=== PATIENT | female | born 1945 | race Caucasian/White ===

== ENCOUNTER → 2016-07-11 | Outpatient (CLI) | payer OTHER, MEDICARE ==
[2016-06-04 16:23] VITALS: BP 192/70
[2016-07-11 13:01] LABS: ALBUMIN 3.8 g/dL (3.4-5.0); BLOOD UREA NITROGEN 56 mg/dL (7-18); CALCIUM 8.7 mg/dL (8.5-10.1); CARBON DIOXIDE 29.3 mmol/L (21-32); CHLORIDE 104 mmol/L (98-107); CHOL/HDL RATIO 3.7 (0.0-5.0); CHOLESTEROL 186 mg/dL (0-200); CREATININE 2.21 mg/dL (0.55-1.02); GLUCOSE 88 mg/dL (65-99); HDL CHOLESTEROL 50 mg/dL (40-60); PHOSPHORUS 5.1 mg/dL (2.6-4.7); SODIUM 144 mmol/L (136-145); TRIGLYCERIDES 89 mg/dL (0-150); URIC ACID 10.4 mg/dL (2.6-6.0); eGFR BLACK RACES 28 (>60); eGFR NON BLACK RACES 23 (>60)
[2016-07-11 13:06] LABS: BASOPHILS # (AUTO) 0.1 X10^3/uL (0.0-0.1); BASOPHILS % (AUTO) 0.9 % (0.2-1.0); EOSINOPHILS # (AUTO) 0.4 x10^3/uL (0.0-0.2); EOSINOPHILS % (AUTO) 3.6 % (0.9-2.9); HEMATOCRIT 27.6 % (36.0-47.0); HEMOGLOBIN 9.4 g/dL (12.0-16.0); LYMPHOCYTES # (AUTO) 2.1 X10^3/uL (1.3-2.9); LYMPHOCYTES % (AUTO) 20.5 % (21.0-51.0); MEAN CORPUSCULAR HEMOGLOBIN 29.3 pg (27.0-34.0); MEAN CORPUSCULAR HGB CONC 33.9 g/dL (33.0-35.0); MEAN CORPUSCULAR VOLUME 86.3 fL (80.0-100.0); MEAN PLATELET VOLUME 7.4 fL (7.4-11.0); MONOCYTES % (AUTO) 9.4 % (0.0-13.0); NEUTROPHILS # (AUTO) 6.7 x10^3/uL (2.2-4.8); NEUTROPHILS % (AUTO) 65.6 % (42.0-75.0); PLATELET COUNT 222 X10^3/uL (150.0-450.0); RED CELL DISTRIBUTION WIDTH 14.9 % (11.6-16.5)
[2016-07-11 13:08] LABS: HEMOGLOBIN A1C 6.9 % (4.5-6.2)
[2016-07-11 13:12] LABS: WHITE BLOOD COUNT 10.2 X10^3/uL (3.6-10.0)
[2016-07-11 13:13] LABS: PLATELET MORPHOLOGY COMMENT NORMAL (NORMAL)
== END ==
LOC: LAB 12:23
PROVIDERS: ATTEND Internal Medicine
DX: I12.9 Hypertensive chronic kidney disease with stage 1 through stage 4 chronic kidney disease, or unspecified chronic kidney disease (principal); N18.3 Chronic kidney disease, stage 3 (moderate); E11.9 Type 2 diabetes mellitus without complications
CPT/HCPCS: 36415; 80061; 80069; 83036; 84550; 85025

== ENCOUNTER → 2016-09-25 | Outpatient (CLI) | payer OTHER, MEDICARE ==
[2016-06-04 16:23] VITALS: BP 192/70
[2016-09-25 11:43] LABS: BASOPHILS % (AUTO) 0.7 % (0.2-1.0); EOSINOPHILS # (AUTO) 0.2 x10^3/uL (0.0-0.2); EOSINOPHILS % (AUTO) 2.7 % (0.9-2.9); HEMOGLOBIN 9.2 g/dL (12.0-16.0); LYMPHOCYTES # (AUTO) 0.9 X10^3/uL (1.3-2.9); LYMPHOCYTES % (AUTO) 15.9 % (21.0-51.0); MEAN CORPUSCULAR HEMOGLOBIN 29.4 pg (27.0-34.0); MEAN CORPUSCULAR HGB CONC 35.4 g/dL (33.0-35.0); MEAN CORPUSCULAR VOLUME 82.9 fL (80.0-100.0); MEAN PLATELET VOLUME 7.3 fL (7.4-11.0); MONOCYTES # (AUTO) 0.5 x10^3/uL (0.3-0.8); MONOCYTES % (AUTO) 9.4 % (0.0-13.0); NEUTROPHILS % (AUTO) 71.3 % (42.0-75.0); PLATELET COUNT 209 X10^3/uL (150.0-450.0); RED BLOOD COUNT 3.13 X10^6/uL (3.5-5.4); RED CELL DISTRIBUTION WIDTH 13.8 % (11.6-16.5); WHITE BLOOD COUNT 5.7 X10^3/uL (3.6-10.0)
[2016-09-25 11:54] LABS: HEMOGLOBIN A1C 6.8 % (4.5-6.2)
[2016-09-25 11:58] LABS: ALBUMIN 3.1 g/dL (3.4-5.0); CALCIUM 8.8 mg/dL (8.5-10.1); CARBON DIOXIDE 29.9 mmol/L (21-32); CHOL/HDL RATIO 5.1 (0.0-5.0); COR CA(FOR HYPOALB) 9.5 mg/dL (8.5-10.1); CREATININE 2.42 mg/dL (0.55-1.02); PHOSPHORUS 4.1 mg/dL (2.6-4.7); URIC ACID 8.3 mg/dL (2.6-6.0)
== END ==
LOC: LAB 11:18
PROVIDERS: ATTEND Internal Medicine
DX: I12.9 Hypertensive chronic kidney disease with stage 1 through stage 4 chronic kidney disease, or unspecified chronic kidney disease (principal); N18.3 Chronic kidney disease, stage 3 (moderate); E11.9 Type 2 diabetes mellitus without complications
CPT/HCPCS: 36415; 80061; 80069; 83036; 84550; 85025

== ENCOUNTER → 2016-11-26 | Outpatient (CLI) | payer OTHER, MEDICARE ==
[2016-06-04 16:23] VITALS: BP 192/70
[2016-11-26 14:01] LABS: CALCIUM 8.3 mg/dL (8.5-10.1); CARBON DIOXIDE 31.3 mmol/L (21-32); COR CA(FOR HYPOALB) 9.1 mg/dL (8.5-10.1); CREATININE 2.57 mg/dL (0.55-1.02); PHOSPHORUS 4.1 mg/dL (2.6-4.7)
[2016-11-26 14:03] LABS: BASOPHILS % (AUTO) 0.7 % (0.2-1.0); EOSINOPHILS # (AUTO) 0.2 x10^3/uL (0.0-0.2); EOSINOPHILS % (AUTO) 4.2 % (0.9-2.9); HEMATOCRIT 24.7 % (36.0-47.0); HEMOGLOBIN 8.6 g/dL (12.0-16.0); LYMPHOCYTES # (AUTO) 0.9 X10^3/uL (1.3-2.9); LYMPHOCYTES % (AUTO) 14.7 % (21.0-51.0); MEAN CORPUSCULAR HEMOGLOBIN 29.3 pg (27.0-34.0); MEAN CORPUSCULAR HGB CONC 34.7 g/dL (33.0-35.0); MEAN CORPUSCULAR VOLUME 84.6 fL (80.0-100.0); MONOCYTES # (AUTO) 0.5 x10^3/uL (0.3-0.8); MONOCYTES % (AUTO) 7.7 % (0.0-13.0); NEUTROPHILS # (AUTO) 4.4 x10^3/uL (2.2-4.8); NEUTROPHILS % (AUTO) 72.7 % (42.0-75.0); PLATELET COUNT 233 X10^3/uL (150.0-450.0); RED BLOOD COUNT 2.92 X10^6/uL (3.5-5.4); RED CELL DISTRIBUTION WIDTH 13.8 % (11.6-16.5)
== END ==
LOC: LAB 13:32
PROVIDERS: ATTEND Internal Medicine
DX: I12.9 Hypertensive chronic kidney disease with stage 1 through stage 4 chronic kidney disease, or unspecified chronic kidney disease (principal); N18.3 Chronic kidney disease, stage 3 (moderate); E11.9 Type 2 diabetes mellitus without complications
CPT/HCPCS: 36415; 80069; 84550; 85025

== ENCOUNTER → 2017-01-14 | Outpatient (CLI) | payer OTHER, MEDICARE ==
[2016-06-04 16:23] VITALS: BP 192/70
[2017-01-14 15:56] LABS: BASOPHILS % (AUTO) 0.6 % (0.2-1.0); EOSINOPHILS # (AUTO) 0.1 x10^3/uL (0.0-0.2); EOSINOPHILS % (AUTO) 2.9 % (0.9-2.9); HEMATOCRIT 24.3 % (36.0-47.0); HEMOGLOBIN 8.3 g/dL (12.0-16.0); LYMPHOCYTES # (AUTO) 0.7 X10^3/uL (1.3-2.9); LYMPHOCYTES % (AUTO) 19.4 % (21.0-51.0); MEAN CORPUSCULAR HGB CONC 34.3 g/dL (33.0-35.0); MEAN CORPUSCULAR VOLUME 87.3 fL (80.0-100.0); MEAN PLATELET VOLUME 6.7 fL (7.4-11.0); MONOCYTES # (AUTO) 0.4 x10^3/uL (0.3-0.8); MONOCYTES % (AUTO) 9.5 % (0.0-13.0); NEUTROPHILS # (AUTO) 2.6 x10^3/uL (2.2-4.8); NEUTROPHILS % (AUTO) 67.6 % (42.0-75.0); PLATELET COUNT 187 X10^3/uL (150.0-450.0); RED BLOOD COUNT 2.78 X10^6/uL (3.5-5.4); WHITE BLOOD COUNT 3.8 X10^3/uL (3.6-10.0)
[2017-01-14 16:07] LABS: HEMOGLOBIN A1C 5.7 % (4.5-6.2)
[2017-01-14 16:10] LABS: ALBUMIN 3.1 g/dL (3.4-5.0); BLOOD UREA NITROGEN 47 mg/dL (7-18); CALCIUM 8.7 mg/dL (8.5-10.1); CARBON DIOXIDE 28.1 mmol/L (21-32); CHLORIDE 105 mmol/L (98-107); COR CA(FOR HYPOALB) 9.4 mg/dL (8.5-10.1); COR NA(FOR HYPERGLY) 142 mmol/L (136-145); PHOSPHORUS 4.4 mg/dL (2.6-4.7); SODIUM 138 mmol/L (136-145); URIC ACID 9.6 mg/dL (2.6-6.0); eGFR BLACK RACES 21 (>60); eGFR NON BLACK RACES 17 (>60)
[2017-01-14 16:36] LABS: IRON 31 ug/dL (50-175); TOTAL IRON BINDING CAPACITY 176 ug/dL (250-450)
== END | disposition home or self-care (01) | DRG 683 ==
LOC: LAB 15:10
PROVIDERS: ATTEND Internal Medicine
DX: I12.9 Hypertensive chronic kidney disease with stage 1 through stage 4 chronic kidney disease, or unspecified chronic kidney disease (principal); N18.4 Chronic kidney disease, stage 4 (severe); D63.1 Anemia in chronic kidney disease; E11.9 Type 2 diabetes mellitus without complications
CPT/HCPCS: 36415; 80069; 82728; 82746; 83036; 83540; 83550; 84550; 85025

== ENCOUNTER → 2017-01-21 | Outpatient (CLI) | payer OTHER, MEDICARE ==
[2016-06-04 16:23] VITALS: BP 192/70
[2017-01-21 14:58] LABS: BASOPHILS % (AUTO) 0.7 % (0.2-1.0); EOSINOPHILS # (AUTO) 0.2 x10^3/uL (0.0-0.2); EOSINOPHILS % (AUTO) 3.3 % (0.9-2.9); HEMATOCRIT 26.2 % (36.0-47.0); HEMOGLOBIN 9.1 g/dL (12.0-16.0); LYMPHOCYTES % (AUTO) 20.9 % (21.0-51.0); MEAN CORPUSCULAR HEMOGLOBIN 30.2 pg (27.0-34.0); MEAN CORPUSCULAR HGB CONC 34.7 g/dL (33.0-35.0); MEAN CORPUSCULAR VOLUME 87.2 fL (80.0-100.0); MEAN PLATELET VOLUME 6.4 fL (7.4-11.0); MONOCYTES # (AUTO) 0.5 x10^3/uL (0.3-0.8); MONOCYTES % (AUTO) 11.1 % (0.0-13.0); NEUTROPHILS # (AUTO) 3.2 x10^3/uL (2.2-4.8); PLATELET COUNT 216 X10^3/uL (150.0-450.0); RED CELL DISTRIBUTION WIDTH 15.7 % (11.6-16.5); WHITE BLOOD COUNT 4.9 X10^3/uL (3.6-10.0)
[2017-01-21 15:10] LABS: ALBUMIN 3.5 g/dL (3.4-5.0); BLOOD UREA NITROGEN 40 mg/dL (7-18); CALCIUM 8.9 mg/dL (8.5-10.1); CARBON DIOXIDE 28.2 mmol/L (21-32); CHLORIDE 103 mmol/L (98-107); COR NA(FOR HYPERGLY) 145 mmol/L (136-145); CREATININE 2.81 mg/dL (0.55-1.02); PHOSPHORUS 4.4 mg/dL (2.6-4.7); SODIUM 141 mmol/L (136-145); URIC ACID 10.1 mg/dL (2.6-6.0); eGFR BLACK RACES 21 (>60); eGFR NON BLACK RACES 18 (>60)
== END ==
LOC: LAB 14:42
PROVIDERS: ATTEND Internal Medicine
DX: N17.8 Other acute kidney failure (principal); N18.3 Chronic kidney disease, stage 3 (moderate)
CPT/HCPCS: 36415; 80069; 84550; 85025

== ENCOUNTER 2017-03-13 10:58 | Observation (INO) | payer OTHER, MEDICARE ==
[2017-03-13 12:23] LABS: EOSINOPHILS # (AUTO) 0.2 x10^3/uL (0.0-0.2); MEAN CORPUSCULAR HEMOGLOBIN 30.2 pg (27.0-34.0); MONOCYTES # (AUTO) 0.7 x10^3/uL (0.3-0.8)
[2017-03-13 12:29] LABS: BASOPHILS % (AUTO) 0.5 % (0.2-1.0); EOSINOPHILS % (AUTO) 2.8 % (0.9-2.9); HEMOGLOBIN 6.6 g/dL (12.0-16.0); LYMPHOCYTES % (AUTO) 18.3 % (21.0-51.0); MEAN CORPUSCULAR HGB CONC 34.9 g/dL (33.0-35.0); MEAN CORPUSCULAR VOLUME 86.5 fL (80.0-100.0); MEAN PLATELET VOLUME 6.7 fL (7.4-11.0); MONOCYTES % (AUTO) 12.1 % (0.0-13.0); NEUTROPHILS # (AUTO) 3.8 x10^3/uL (2.2-4.8); NEUTROPHILS % (AUTO) 66.3 % (42.0-75.0); PLATELET COUNT 194 X10^3/uL (150.0-450.0); RED CELL DISTRIBUTION WIDTH 13.9 % (11.6-16.5); WHITE BLOOD COUNT 5.7 X10^3/uL (3.6-10.0)
[2017-03-13] MEDS ORDERED: NS 500 ML IV 500 ML IV ONE (13:59)
[2017-03-13] MEDS ORDERED: CATAPRES TAB 0.1 MG ONE (17:40)
[2017-03-13 18:07] VITALS: BMI 31.2
[2017-03-13] MEDS ORDERED: FLUVIRIN IM ONE (18:07)
[2017-03-13] MEDS ORDERED: PREVNAR 13 IM ONE (18:07)
[2017-03-13] MEDS ORDERED: XANAX PO PRN (18:44)
[2017-03-13] MEDS ORDERED: TYLENOL 325 MG TAB PO ONE (18:49)
[2017-03-13] MEDS ORDERED: BENADRYL INJ 50 MG VIAL IVP ONE (18:49)
[2017-03-13] MEDS ORDERED: LASIX IVP ONE (18:50)
[2017-03-13] MEDS ORDERED: HumuLIN R SUBCUT PRN (18:52)
[2017-03-13] MEDS: APRESOLINE INJ 20 MG VIAL IVP PRN (19:21)
[2017-03-13] MEDS ORDERED: HYDRALAZINE HCL 100 MG PO SCH (21:00)
[2017-03-13] MEDS ORDERED: PRAVASTATIN SODIUM 40 MG PO SCH (21:00)
[2017-03-13] MEDS ORDERED: AMARYL TAB 4 MG PO SCH (21:00)
[2017-03-13] MEDS: SNACK - Diabetic Appropriate PO SCH (21:00)
[2017-03-13] MEDS ORDERED: APRESOLINE TAB 25 MG PO SCH (21:00)
[2017-03-13] MEDS ORDERED: ELAVIL PO SCH (21:00)
[2017-03-13] MEDS: MILK OF MAGNESIA PO SCH (22:00)
[2017-03-13] MEDS: COLACE CAP 100 MG PO SCH (22:00)
[2017-03-13] MEDS: PRAVACHOL PO SCH (22:00)
[2017-03-13] MEDS: ELAVIL PO SCH (22:00)
[2017-03-13] MEDS ORDERED: CATAPRES TAB 0.1 MG PO ONE (23:44)
[2017-03-14] MEDS: COLACE CAP 100 MG PO SCH ×2 (00:52→21:51)
[2017-03-14] MEDS: PRAVACHOL PO SCH ×2 (01:00→22:35)
[2017-03-14] MEDS: MILK OF MAGNESIA PO SCH ×2 (01:03→21:53)
[2017-03-14] MEDS: ELAVIL PO SCH ×2 (01:04→21:51)
[2017-03-14] MEDS: LASIX PO SCH ×2 (01:04→09:09)
[2017-03-14] MEDS ORDERED: NORVASC TAB 5 MG PO ONE (02:16)
[2017-03-14] MEDS ORDERED: APRESOLINE INJ 20 MG VIAL ONE (02:26)
[2017-03-14] MEDS: APRESOLINE INJ 20 MG VIAL IVP PRN ×2 (02:40→16:33)
[2017-03-14] MEDS ORDERED: AMARYL TAB 4 MG PO SCH (07:00)
[2017-03-14 08:13] LABS: BASOPHILS % (AUTO) 0.6 % (0.2-1.0); EOSINOPHILS # (AUTO) 0.2 x10^3/uL (0.0-0.2); EOSINOPHILS % (AUTO) 2.1 % (0.9-2.9); LYMPHOCYTES # (AUTO) 1.2 X10^3/uL (1.3-2.9); MEAN CORPUSCULAR HEMOGLOBIN 30.1 pg (27.0-34.0); MEAN CORPUSCULAR HGB CONC 34.8 g/dL (33.0-35.0); MEAN CORPUSCULAR VOLUME 86.5 fL (80.0-100.0); MEAN PLATELET VOLUME 6.5 fL (7.4-11.0); NEUTROPHILS # (AUTO) 4.9 x10^3/uL (2.2-4.8); NEUTROPHILS % (AUTO) 67.3 % (42.0-75.0); PLATELET COUNT 192 X10^3/uL (150.0-450.0); RED BLOOD COUNT 2.12 X10^6/uL (3.5-5.4); RED CELL DISTRIBUTION WIDTH 13.8 % (11.6-16.5); WHITE BLOOD COUNT 7.3 X10^3/uL (3.6-10.0)
[2017-03-14 08:16] LABS: HEMATOCRIT 18.4 % (36.0-47.0); HEMOGLOBIN 6.4 g/dL (12.0-16.0)
[2017-03-14] MEDS ORDERED: ASPIRIN 81 MG PO SCH (09:00)
[2017-03-14] MEDS ORDERED: TORSEMIDE 10 MG PO SCH (09:00)
[2017-03-14] MEDS ORDERED: LASIX PO SCH (09:00)
[2017-03-14] MEDS ORDERED: ASPIRIN EC 81 MG PO SCH (09:00)
[2017-03-14] MEDS ORDERED: SPIRONOLACTONE 50 MG PO SCH (09:00)
[2017-03-14] MEDS ORDERED: ALDACTONE TAB 25 MG PO SCH (09:00)
[2017-03-14] MEDS: APRESOLINE TAB 25 MG PO SCH ×2 (09:07→21:52)
[2017-03-14] MEDS: ALDACTONE TAB 25 MG PO SCH (09:08)
[2017-03-14] MEDS: XANAX PO SCH (09:09)
[2017-03-14] MEDS: DEMADEX PO SCH (09:09)
[2017-03-14] MEDS: ASPIRIN 81 MG CHEWTAB PO SCH (09:09)
[2017-03-14] MEDS ORDERED: NS 500 ML IV 500 ML IV ONE (09:13)
--- NOTE | 2017-03-14 13:55 | DR.H&P ---
H&P - History & Physical for Day of: H&P Date: 03/13/17 - Chief Complaint Chief Complaint: HYPERTENSION - Allergies Allergies/Adverse Reactions: Allergies Allergy/AdvReac Type Severity Reaction Status Date / Time MS Sulfa Antibiotics Allergy Unknown Verified 03/13/17 23:43 [Sulfa Antibiotics] MS Sulfamethoxazole Allergy Unknown Verified 03/13/17 23:43 w/Trimethoprim [From Bactrim] - History of Present Illness History of Present Illness: 72 WF ADMISSION AFTER PRESENTING FOR OP LABS AND HAD HYPERTENSIVE URGENCY, PT HAS LONG HX OF UNCONTROLLED HTN. PT IS UNDER CARE OF DR SEPULVEDA FOR CHRONIC ANEMIA. PLAN TO RESUME HOME MEDS, BP CONTROL AND TRANSFUSE BLOOD PRODUCTS. - Past Medical History Past Medical History: Anemia, Diabetes, Hypertension - Past Surgical History Surgical History: CABG/Valve Surgery - Family History Family Medical History: Diabetes Mellitus, Cancer, Coronary Artery Disease, Hypertension - Social History Does patient currently use any type of tobacco product: No Have you used tobacco products in the last 12 months: No Type of Tobacco Use: None Does any household member use tobacco: No Alcohol Use: None Drug Use: None - Medications Home Medications: Alprazolam 0.25 mg PO DAILY 03/13/17 [History Confirmed 03/13/17] Amitriptyline HCl 25 mg PO HS 03/13/17 [History Confirmed 03/13/17] Aspirin 81 mg PO DAILY 03/13/17 [History Confirmed 03/13/17] Cinnamon Bark [Cinnamon] 500 mg PO DAILY 03/13/17 [History Confirmed 03/13/17] Furosemide [Lasix] 40 mg PO DAILY 03/13/17 [History Confirmed 03/13/17] Hydralazine HCl [Hydralazine HCl 50 mg] 100 mg PO BID 03/13/17 [History Confirmed 03/13/17] Spironolactone 50 mg PO DAILY 03/13/17 [History Confirmed 03/13/17] - Review of Systems Constitutional: Weakness Eyes: No Symptoms Reported ENT: No Symptoms Reported Respiratory: No Symptoms Reported Cardiovascular: No Symptoms Reported Gastrointestinal: No Symptoms Reported Genitourinary: No Symptoms Reported Musculoskeletal: No Symptoms Reported Skin: No Symptoms Reported Neurological: No Symptoms Reported - Physical Exam Vital Signs: Temperature 99.2 F Pulse Rate [Left Brachial] 74 Pulse Rate [Right Brachial] 82 Respiratory Rate 18 Blood Pressure [Left Arm] 200/79 Blood Pressure [Right Arm] 208/87 Blood Pressure 192/70 O2 Sat by Pulse Oximetry 94 Oriented: Normal Eyes: Normal Ear: Normal Nose: Normal Throat: Normal Respiratory: RLL Diminished, LLL Diminished Cardiovascular: Normal. negative: Edema : Normal Auscultation: Bowel Sounds: Normal Palpation: Normal Tenderness: Normal Skin: Normal Musculoskeletal: Normal Mood Description: Calm Speech Pattern: Clear, Appropriate - Assessment/Plan (1) Uncontrolled hypertension Status: Acute Plan: ADMIT, EKG, CXR ON ADMISSION. BP CONTROL, MONITORING, RESUME HOME MEDS. TRANFUSE BLOOD PRODUCT ORDERED PER DR SEPULVEDA (2) Anemia Status: Acute
--- NOTE | 2017-03-14 14:15 | RAD ---
Examination: Portable AP chest History: Hypertensive crisis, anemia Comparison reference: 11/05/2011. Findings: Moderately severe cardiac enlargement. Aortic arch arteriosclerosis. Sternal wires again no dinorah. Mild central vascular prominence without evidence for consolidation or pulmonary edema. The retr ocardiac left lower lung is partly obscured by the heart. Impression: Cardiac enlargement, arteriosclerosis, postsurgical findings and mild vascular congestion . Standard views suggested to exclude abnormality in the left lower lung, see above. Reported By:
[2017-03-14] MEDS: SNACK - Diabetic Appropriate PO SCH (20:30)
[2017-03-14] MEDS ORDERED: NORVASC TAB 5 MG PO SCH (21:00)
[2017-03-14] MEDS ORDERED: CATAPRES TAB 0.1 MG PO PRN (21:23)
[2017-03-14] MEDS ORDERED: CATAPRES TAB 0.2 MG PO SCH (22:00)
[2017-03-14] MEDS ORDERED: NORVASC TAB 5 MG ONE (22:06)
[2017-03-14] MEDS: NORVASC TAB 10 MG PO SCH (22:24)
[2017-03-15] MEDS ORDERED: NS 500 ML IV 500 ML IV ONE (00:42)
[2017-03-15] MEDS ORDERED: BENADRYL INJ 50 MG VIAL ONE (02:45)
[2017-03-15] MEDS ORDERED: TYLENOL 325 MG TAB PO ONE (02:45)
[2017-03-15] MEDS ORDERED: ROBITUSSIN DM PO PRN (02:53)
[2017-03-15] MEDS: APRESOLINE INJ 20 MG VIAL IVP PRN (03:24)
[2017-03-15 06:04] LABS: EOSINOPHILS # (AUTO) 0.2 x10^3/uL (0.0-0.2); LYMPHOCYTES # (AUTO) 1.1 X10^3/uL (1.3-2.9); MONOCYTES # (AUTO) 0.8 x10^3/uL (0.3-0.8)
[2017-03-15 06:08] LABS: BASOPHILS % (AUTO) 0.5 % (0.2-1.0); EOSINOPHILS % (AUTO) 3.5 % (0.9-2.9); LYMPHOCYTES % (AUTO) 15.2 % (21.0-51.0); MEAN CORPUSCULAR HEMOGLOBIN 29.9 pg (27.0-34.0); MEAN CORPUSCULAR HGB CONC 34.8 g/dL (33.0-35.0); MEAN CORPUSCULAR VOLUME 85.9 fL (80.0-100.0); MEAN PLATELET VOLUME 6.8 fL (7.4-11.0); MONOCYTES % (AUTO) 11.1 % (0.0-13.0); NEUTROPHILS % (AUTO) 69.7 % (42.0-75.0); PLATELET COUNT 225 X10^3/uL (150.0-450.0); RED BLOOD COUNT 2.24 X10^6/uL (3.5-5.4); RED CELL DISTRIBUTION WIDTH 14.1 % (11.6-16.5); WHITE BLOOD COUNT 7.2 X10^3/uL (3.6-10.0)
[2017-03-15 06:24] LABS: HEMATOCRIT 19.3 % (36.0-47.0); HEMOGLOBIN 6.7 g/dL (12.0-16.0)
[2017-03-15 06:26] LABS: ALBUMIN 2.1 g/dL (3.4-5.0); CALCIUM 7.5 mg/dL (8.5-10.1); CARBON DIOXIDE 27.3 mmol/L (21-32); CREATININE 3.62 mg/dL (0.55-1.02); TOTAL PROTEIN 4.9 g/dL (6.4-8.2)
[2017-03-15] MEDS ORDERED: AMARYL TAB 4 MG PO SCH (07:00)
[2017-03-15] MEDS ORDERED: MINOXIDIL PO ONE ×2 (07:09→07:18)
[2017-03-15] MEDS: LASIX PO SCH (08:07)
[2017-03-15] MEDS: CATAPRES TAB 0.3 MG PO SCH ×3 (08:07→16:44)
[2017-03-15] MEDS: XANAX PO SCH (08:07)
[2017-03-15] MEDS: ALDACTONE TAB 25 MG PO SCH (08:08)
[2017-03-15] MEDS: ASPIRIN 81 MG CHEWTAB PO SCH (08:08)
[2017-03-15] MEDS: APRESOLINE TAB 25 MG PO SCH (08:08)
[2017-03-15] MEDS: DEMADEX PO SCH (08:08)
[2017-03-15] MEDS ORDERED: LASIX ONE (12:43)
[2017-03-15] MEDS: NORCO 5/325 MG TAB PO PRN ×2 (12:46→17:00)
[2017-03-15 16:32] VITALS: BP 183/75
[2017-03-15] MEDS: NORVASC TAB 10 MG PO SCH (16:44)
[2017-03-15 18:00] LABS: HEMATOCRIT 28.9 % (36.0-47.0); HEMOGLOBIN 10.2 g/dL (12.0-16.0)
== END 2017-03-15 18:11 | disposition home or self-care (01) ==
LOC: OUTPT REF 10:58 → OBS 17:39
PROVIDERS: ADMIT Internal Medicine; ATTEND Internal Medicine
PROC: 30233N1 Transfusion of Nonautologous Red Blood Cells into Peripheral Vein, Percutaneous Approach (ICD-10-PCS; principal; 2017-03-15)
PROC: 30233N1 Transfusion of Nonautologous Red Blood Cells into Peripheral Vein, Percutaneous Approach (ICD-10-PCS; 2017-03-15)
DX: I16.0 Hypertensive urgency (principal); D64.89 Other specified anemias; E11.65 Type 2 diabetes mellitus with hyperglycemia; I25.10 Atherosclerotic heart disease of native coronary artery without angina pectoris
CPT/HCPCS: 36415; 36430; 71010; 80053; 85014; 85018; 85025; 86850; 86900; 86901; 86922; 90686; 93005; 93010; A4222; P9016; 90670; G0378; J0360; J1200; J1940

== ENCOUNTER → 2017-04-02 | Outpatient (CLI) | payer OTHER, MEDICARE ==
[2017-03-15 16:32] VITALS: BP 183/75
[2017-04-02 16:35] LABS: BASOPHILS % (AUTO) 0.5 % (0.2-1.0); EOSINOPHILS # (AUTO) 0.3 x10^3/uL (0.0-0.2); EOSINOPHILS % (AUTO) 3.8 % (0.9-2.9); HEMATOCRIT 30.1 % (36.0-47.0); HEMOGLOBIN 10.2 g/dL (12.0-16.0); LYMPHOCYTES # (AUTO) 0.8 X10^3/uL (1.3-2.9); LYMPHOCYTES % (AUTO) 10.9 % (21.0-51.0); MEAN CORPUSCULAR HEMOGLOBIN 29.6 pg (27.0-34.0); MEAN CORPUSCULAR VOLUME 87.2 fL (80.0-100.0); MEAN PLATELET VOLUME 6.8 fL (7.4-11.0); MONOCYTES # (AUTO) 0.7 x10^3/uL (0.3-0.8); MONOCYTES % (AUTO) 8.7 % (0.0-13.0); NEUTROPHILS # (AUTO) 5.7 x10^3/uL (2.2-4.8); NEUTROPHILS % (AUTO) 76.1 % (42.0-75.0); PLATELET COUNT 244 X10^3/uL (150.0-450.0); RED BLOOD COUNT 3.46 X10^6/uL (3.5-5.4); WHITE BLOOD COUNT 7.6 X10^3/uL (3.6-10.0)
[2017-04-02 16:51] LABS: ALBUMIN 2.6 g/dL (3.4-5.0); CARBON DIOXIDE 24.8 mmol/L (21-32); COR CA(FOR HYPOALB) 9.1 mg/dL (8.5-10.1); CREATININE 4.12 mg/dL (0.55-1.02); PHOSPHORUS 5.3 mg/dL (2.6-4.7); URIC ACID 9.4 mg/dL (2.6-6.0)
== END ==
LOC: LAB 16:09
PROVIDERS: ATTEND Internal Medicine
DX: I12.9 Hypertensive chronic kidney disease with stage 1 through stage 4 chronic kidney disease, or unspecified chronic kidney disease (principal); N18.3 Chronic kidney disease, stage 3 (moderate)
CPT/HCPCS: 36415; 80069; 84550; 85025

== ENCOUNTER → 2017-04-07 | Outpatient (CLI) | payer OTHER, MEDICARE ==
[2017-03-15 16:32] VITALS: BP 183/75
[2017-04-07 12:54] LABS: BASOPHILS % (AUTO) 0.8 % (0.2-1.0); EOSINOPHILS # (AUTO) 0.2 x10^3/uL (0.0-0.2); EOSINOPHILS % (AUTO) 3.9 % (0.9-2.9); HEMATOCRIT 28.6 % (36.0-47.0); HEMOGLOBIN 9.8 g/dL (12.0-16.0); LYMPHOCYTES # (AUTO) 0.8 X10^3/uL (1.3-2.9); LYMPHOCYTES % (AUTO) 16.2 % (21.0-51.0); MEAN CORPUSCULAR HEMOGLOBIN 29.8 pg (27.0-34.0); MEAN CORPUSCULAR HGB CONC 34.4 g/dL (33.0-35.0); MEAN CORPUSCULAR VOLUME 86.9 fL (80.0-100.0); MEAN PLATELET VOLUME 7.3 fL (7.4-11.0); MONOCYTES # (AUTO) 0.4 x10^3/uL (0.3-0.8); MONOCYTES % (AUTO) 7.9 % (0.0-13.0); NEUTROPHILS # (AUTO) 3.6 x10^3/uL (2.2-4.8); NEUTROPHILS % (AUTO) 71.2 % (42.0-75.0); PLATELET COUNT 225 X10^3/uL (150.0-450.0); RED CELL DISTRIBUTION WIDTH 13.9 % (11.6-16.5); WHITE BLOOD COUNT 5.1 X10^3/uL (3.6-10.0)
[2017-04-07 13:06] LABS: ALBUMIN 2.5 g/dL (3.4-5.0); CALCIUM 8.1 mg/dL (8.5-10.1); CARBON DIOXIDE 28.9 mmol/L (21-32); COR CA(FOR HYPOALB) 9.3 mg/dL (8.5-10.1); CREATININE 5.64 mg/dL (0.55-1.02); PHOSPHORUS 5.5 mg/dL (2.6-4.7)
== END ==
LOC: LAB 12:38
PROVIDERS: ATTEND Nurse Practitioner Family
DX: I12.9 Hypertensive chronic kidney disease with stage 1 through stage 4 chronic kidney disease, or unspecified chronic kidney disease (principal); N18.3 Chronic kidney disease, stage 3 (moderate)
CPT/HCPCS: 36415; 80069; 85025

== ENCOUNTER → 2017-05-28 | Outpatient (CLI) | payer OTHER, MEDICARE ==
[2017-05-28 13:03] LABS: BASOPHILS # (AUTO) 0.1 X10^3/uL (0.0-0.1); BASOPHILS % (AUTO) 0.9 % (0.2-1.0); EOSINOPHILS # (AUTO) 0.3 x10^3/uL (0.0-0.2); HEMATOCRIT 27.4 % (36.0-47.0); HEMOGLOBIN 9.5 g/dL (12.0-16.0); LYMPHOCYTES % (AUTO) 15.8 % (21.0-51.0); MEAN CORPUSCULAR HEMOGLOBIN 30.3 pg (27.0-34.0); MEAN CORPUSCULAR HGB CONC 34.6 g/dL (33.0-35.0); MEAN CORPUSCULAR VOLUME 87.5 fL (80.0-100.0); MEAN PLATELET VOLUME 7.1 fL (7.4-11.0); MONOCYTES # (AUTO) 0.5 x10^3/uL (0.3-0.8); MONOCYTES % (AUTO) 8.6 % (0.0-13.0); NEUTROPHILS # (AUTO) 4.2 x10^3/uL (2.2-4.8); NEUTROPHILS % (AUTO) 69.7 % (42.0-75.0); PLATELET COUNT 244 X10^3/uL (150.0-450.0); RED BLOOD COUNT 3.13 X10^6/uL (3.5-5.4)
[2017-05-28 13:11] LABS: ALBUMIN 2.6 g/dL (3.4-5.0); CALCIUM 8.3 mg/dL (8.5-10.1); CARBON DIOXIDE 28.5 mmol/L (21-32); COR CA(FOR HYPOALB) 9.4 mg/dL (8.5-10.1); CREATININE 4.53 mg/dL (0.55-1.02); PHOSPHORUS 4.8 mg/dL (2.6-4.7); URIC ACID 12.9 mg/dL (2.6-6.0)
== END ==
LOC: LAB 12:36
PROVIDERS: ATTEND Internal Medicine
DX: I12.9 Hypertensive chronic kidney disease with stage 1 through stage 4 chronic kidney disease, or unspecified chronic kidney disease (principal); N18.3 Chronic kidney disease, stage 3 (moderate)
CPT/HCPCS: 36415; 80069; 84550; 85025

== ENCOUNTER → 2017-08-04 | Outpatient (CLI) | payer OTHER, MEDICARE ==
[2017-08-04 15:48] LABS: BASOPHILS % (AUTO) 0.7 % (0.2-1.0); EOSINOPHILS # (AUTO) 0.2 x10^3/uL (0.0-0.2); EOSINOPHILS % (AUTO) 4.3 % (0.9-2.9); LYMPHOCYTES % (AUTO) 22.5 % (21.0-51.0); MEAN CORPUSCULAR HEMOGLOBIN 30.9 pg (27.0-34.0); MEAN CORPUSCULAR HGB CONC 34.6 g/dL (33.0-35.0); MEAN CORPUSCULAR VOLUME 89.4 fL (80.0-100.0); MEAN PLATELET VOLUME 7.6 fL (7.4-11.0); MONOCYTES # (AUTO) 0.4 x10^3/uL (0.3-0.8); MONOCYTES % (AUTO) 8.4 % (0.0-13.0); NEUTROPHILS % (AUTO) 64.1 % (42.0-75.0); PLATELET COUNT 175 X10^3/uL (150.0-450.0); RED BLOOD COUNT 1.98 X10^6/uL (3.5-5.4); RED CELL DISTRIBUTION WIDTH 12.3 % (11.6-16.5); WHITE BLOOD COUNT 4.6 X10^3/uL (3.6-10.0)
[2017-08-04 15:52] LABS: HEMOGLOBIN A1C 5.8 %
[2017-08-04 15:54] LABS: ALBUMIN 3.6 g/dL (3.4-5.0); BLOOD UREA NITROGEN 80 mg/dL (7-18); CALCIUM 8.3 mg/dL (8.5-10.1); CHLORIDE 105 mmol/L (98-107); COR NA(FOR HYPERGLY) 143 mmol/L (136-145); PHOSPHORUS 6.4 mg/dL (2.6-4.7); SODIUM 140 mmol/L (136-145); URIC ACID 9.3 mg/dL (2.6-6.0); eGFR BLACK RACES 11 (>60); eGFR NON BLACK RACES 9 (>60)
[2017-08-04 16:03] LABS: HEMOGLOBIN 6.1 g/dL (12.0-16.0)
[2017-08-04 16:05] LABS: HEMATOCRIT 17.7 % (36.0-47.0)
== END | disposition home or self-care (01) | DRG 683 ==
LOC: LAB 15:22
PROVIDERS: ATTEND Internal Medicine
DX: I12.0 Hypertensive chronic kidney disease with stage 5 chronic kidney disease or end stage renal disease (principal); N18.5 Chronic kidney disease, stage 5; D63.1 Anemia in chronic kidney disease; E11.22 Type 2 diabetes mellitus with diabetic chronic kidney disease
CPT/HCPCS: 36415; 80069; 83036; 84550; 85025

== ENCOUNTER → 2017-09-01 | Outpatient (CLI) | payer OTHER, MEDICARE ==
[2017-09-01 13:55] LABS: BASOPHILS % (AUTO) 0.7 % (0.2-1.0); EOSINOPHILS # (AUTO) 0.2 x10^3/uL (0.0-0.2); EOSINOPHILS % (AUTO) 3.3 % (0.9-2.9); HEMOGLOBIN 8.8 g/dL (12.0-16.0); LYMPHOCYTES # (AUTO) 1.4 X10^3/uL (1.3-2.9); LYMPHOCYTES % (AUTO) 23.6 % (21.0-51.0); MEAN CORPUSCULAR HEMOGLOBIN 30.4 pg (27.0-34.0); MEAN CORPUSCULAR HGB CONC 35.1 g/dL (33.0-35.0); MEAN CORPUSCULAR VOLUME 86.5 fL (80.0-100.0); MONOCYTES # (AUTO) 0.5 x10^3/uL (0.3-0.8); MONOCYTES % (AUTO) 8.1 % (0.0-13.0); NEUTROPHILS # (AUTO) 3.7 x10^3/uL (2.2-4.8); NEUTROPHILS % (AUTO) 64.3 % (42.0-75.0); PLATELET COUNT 208 X10^3/uL (150.0-450.0); RED BLOOD COUNT 2.89 X10^6/uL (3.5-5.4); RED CELL DISTRIBUTION WIDTH 13.7 % (11.6-16.5); WHITE BLOOD COUNT 5.7 X10^3/uL (3.6-10.0)
[2017-09-01 14:01] LABS: ALBUMIN 3.8 g/dL (3.4-5.0); BLOOD UREA NITROGEN 91 mg/dL (7-18); CALCIUM 8.1 mg/dL (8.5-10.1); CARBON DIOXIDE 24.6 mmol/L (21-32); CHLORIDE 101 mmol/L (98-107); COR NA(FOR HYPERGLY) 141 mmol/L (136-145); CREATININE 5.89 mg/dL (0.55-1.02); PHOSPHORUS 5.2 mg/dL (2.6-4.7); SODIUM 138 mmol/L (136-145); URIC ACID 10.9 mg/dL (2.6-6.0); eGFR BLACK RACES 9 (>60); eGFR NON BLACK RACES 8 (>60)
== END ==
LOC: LAB 13:32
PROVIDERS: ATTEND Internal Medicine
DX: I12.9 Hypertensive chronic kidney disease with stage 1 through stage 4 chronic kidney disease, or unspecified chronic kidney disease (principal); N18.5 Chronic kidney disease, stage 5
CPT/HCPCS: 36415; 80069; 84550; 85025

== ENCOUNTER 2018-03-21 04:54 | Inpatient (IN) ==
[2018-03-21] MEDS ORDERED: LASIX IVP STA (05:13)
[2018-03-21] MEDS ORDERED: LASIX IVP ONE (05:18)
[2018-03-21] MEDS ORDERED: LASIX ONE (05:18)
--- NOTE | 2018-03-21 05:20 | DR.HTN ---
HPI - Time Seen Time seen: 05:12 - Complaints Chief Complaint Doctors Comments: Family states patient woke up feeling bad and they checked her blood pressure and it was 247/108 at home before coming to the emergency room. States she took all of he blood pressue medicines today. She denies chest pain, SOB, headache, dizziness, nausea or vomiting. States she has been having swelling in her legs and worst in her left leg since she had by-pass surgery 2000. states she is on dialysis Thursday, Thursday and Thursday and they increased her dialysis time from two hours unitl three hours and it gets her upset. She has a problem with her nerves and she shakes a lot. States she has been moving around a lot today and that may have contributed to he swelling in her legs. She is a patient of Mona Moreno. She denies tobacco or alcohol usage. - Reviewed Nurses Notes Reviewed: Yes - Source History Provided: Patient, Family Member - Mode of Arrival Mode of Arrival: Wheelchair - Severity What was the maximum recorded B/P?: 247/108 Severity: Moderate - Context Circumstances: Spontaneous Onset History of: Hypertension Treatment of HTN Prior to Arrival: Taking meds as prescribed Recent use of:: denies: Cocaine, Amphetamines, Cold medications - Associated Signs and Symptoms HTN Associated Signs and Symptoms: None PMH - PMH Past Medical History: Anemia, Diabetes, Hypertension Past Surgical History: Yes Surgical History: CABG/Valve Surgery - Family History Family Medical History: Diabetes Mellitus, Cancer, Coronary Artery Disease, Hypertension - Social History Do you use any recreational Drugs:: No ROS - Review of Systems Constitutional: No Symptoms Reported. negative: See HPI, Chills, Diaphoresis, Fever, Malaise, Weakness, Irritable, Fatigue, Loss of Appetite, Other Eyes: No Symptoms Reported ENTM: No Symptoms Reported Respiratoy: No Symptoms Reported. negative: See HPI, Productive Cough, Non-Productive Cough, Moist Cough, Dry Cough, Hacking Cough, Barking Cough, Brassy Cough, Orthopnea, Short of Breath, Stridor, Wheezing, Hemoptysis, Other Cardiovascular: No Symptoms Reported. negative: See HPI, Chest Pain, Edema, Palpitations, Syncope, Cyanosis, Skin Mottling, Other Gastrointestinal/Abdominal: No Symptoms Reported. negative: See HPI, Abdominal Pain, Constipation, Diarrhea, Nausea, Vomiting, Food Intolerance, Other Genitourinary: No Symptoms Reported. negative: See HPI, Discharge, Dysuria, Frequency, Hematuria, Pain, Bleeding, Other Neurological: No Symptoms Reported, Anxiety. negative: See HPI, Depressed, Emotional Problems, Headache, Numbness, Paresthesia, Pre-existing Deficit, S eizure, Tingling, Tremors, Weakness, Dizziness, Problems Walking, Speech Problem, Other Musculoskeletal: No Symptoms Reported Integumentary: No Symptoms Reported Hematologic/Lymphatic: No Symptoms Reported Endocrine: No Symptoms Reported Psychiatric: No Symptoms Reported, Anxiety PE - General Limitations: No Limitations General Appearance: Alert, In No Apparent Distress - Head Head Exam: Normal Inspection, Atraumatic, Normocephalic - Eyes Eye exam: Normal Appearance, PERRL, EOMI. negative: Scleral Icterus, Conjunctival Injection, Nystagmus, Miosis, Mydrasis, Periorbital Swelling, Periorbital Tenderness, Other Pupils: Regular, Round: Bilateral Sclera/Conjunctival: Normal Inspection: Bilateral - ENT ENT Exam: Normal Exam, Normal Oropharynx, Normal External Ear Exam, Mucous Membranes Moist (multiple missing teeth and dental caries), TM's Normal Bilaterally - Neck Neck Exam: Normal Inspection, Full ROM, Trachea Midline. negative: Tenderness, Meningismus, Lymphadenopathy, Thyromegaly, Other - Chest Chest Inspection: Normal Inspection, Symmetric Chest Wall Rise - Respiratory Respiratory Exam: Normal Lung Sounds Bilat Respiratory Exam: Bilateral Clear to Auscultation - Cardiovascular Cardiovascular Exam: Regular Rate, Normal Rhythm, Normal Heart Sounds - Abdominal Exam Abdominal Exam: Normal Inspection, Normal Bowel Sounds, Soft Abdominal Tenderness: negative: RUQ, RLQ, LUQ, LLQ, Epigastrium, Suprapubic, Diffuse, Mild, Moderate, Severe, Other - Extremities Extremities Exam: Normal Inspection, Full ROM, Tenderness (left lower leg tender on palpation; swelling noted), Normal Capillary Refill, Edema (2+ dependent edema; healed surgical scar left lower leg) - Back Back Exam: Normal Inspection, Full ROM. negative: Tenderness, (R) CVA Tenderness, (L) CVA Tenderness, Muscle Spasm, Paraspinal Tenderness, Vertebral Tenderness, Rashes, (R) Sciatic Notch Tenderness, (L) Sciatic Notch Tendern, (R) Straight Leg Raise, (L) Straight Leg Raise, Other - Neurologic Neurological Exam: Alert, Oriented X3, CN II-XII Intact, Reflexes Normal. n egative: Normal Gait (gait not tested) Speech: Fluid Speech Cranial Nerve Exam: EOM Function (II, III, IV, ): Normal, Facial Sensation (V): Normal, Gag reflex (XI): Normal Motor Strength - LUE: 5/5 Motor Strength - RUE: 5/5 Motor Strength - LLE: 5/5 Motor Strength - RLE: 5/5 Upper Motor Neuron Exam: Babinski Sign: Normal Sensory Exam Upper Extremity: Light Touch: Normal Sensory Exam Lower Extremity: Light Touch: Normal DTR: bicep (L): 2+, bicep (R): 2+, Patellar (L): 2+, patellar (R): 2+ - Psychiatric Psychiatric Exam: Normal Affect, Normal Mood. negative: Depressed, Agitated, Anxious, Flat Affect, Manic, Homicidal Ideation, Suicidal Ideation, Other - Skin Skin Exam: Warm, Dry, Intact, Normal Color - Vital Signs Vitals: Temperature 99 F Pulse Rate [Right] 93 Pulse Rate 93 Respiratory Rate 22 Blood Pressure [Left Arm] 183/75 Blood Pressure [Right Arm] 237/107 Blood Pressure 185/85 O2 Sat by Pulse Oximetry 98 Course - Reevaluation 1st: Improved - Consultation Called: 06:27 Call Returned: 06:27 (Dr. Glass to admit) - Education/Counseling Education/Counseling: Patient, Family Educated On: Treatment, Diagnosis, Needs for Follow Up ROR - Labs Reviewed Laboratory Results Reviewed?: Yes (All labs and x-ray results reviewed and discussed with patient and family) Result Diagrams: 03/21/18 05:35 03/21/18 05:35 - XRAY XRAY Interpreted by: Radiologist (CXR: Cardiomegaly witth mild interstitial edema with bilateral pleural effusion, CHF. Bibasilar opacities likely atelectasis cannot exclude pneumonia) - EKG Rate: 98 [place]: Normal Rhythm: NSR Block: None Hypertrophy: None ST: Old, Ant, Infarct - Labs Reviewed Laboratory: WBC 4.5 X10^3/uL (3.6-10.0) 03/21/18 05:35 RBC 3.20 X10^6/uL (3.5-5.4) L 03/21/18 05:35 Hgb 9.8 g/dL (12.0-16.0) L 03/21/18 05:35 Hct 28.8 % (36.0-47.0) L 03/21/18 05:35 MCV 89.9 fL (80.0-100.0) 03/21/18 05:35 MCH 30.5 pg (27.0-34.0) 03/21/18 05:35 MCHC 33.9 g/dL (33.0-35.0) 03/21/18 05:35 RDW 15.4 % (11.6-16.5) 03/21/18 05:35 Plt Count 168 X10^3/uL (150.0-450.0) 03/21/18 05:35 MPV 7.4 fL (7.4-11.0) 03/21/18 05:35 Neut % (Auto) 67.4 % (42.0-75.0) 03/21/18 05:35 Lymph % (Auto) 22.1 % (21.0-51.0) 03/21/18 05:35 [place] % (Auto) 6.6 % (0.0-13.0) 03/21/18 05:35 Eos % (Auto) 2.9 % (0.9-2.9) 03/21/18 05:35 Baso % (Auto) 1.0 % (0.2-1.0) 03/21/18 05:35 Neut # (Auto) 3.0 x10^3/uL (2.2-4.8) 03/21/18 05:35 Lymph # (Auto) 1.0 X10^3/uL (1.3-2.9) L 03/21/18 05:35 [place]man # (Auto) 0.3 x10^3/uL (0.3-0.8) 03/21/18 05:35 Eos # (Auto) 0.1 x10^3/uL (0.0-0.2) 03/21/18 05:35 Baso # (Auto) 0.0 X10^3/uL (0.0-0.1) 03/21/18 05:35 Absolute Nucleated RBC 0.0 /100WBC 03/21/18 05:35 INR Target Range - 03/21/18 05:35 INR 0.94 (0.8-1.3) 03/21/18 05:35 APTT 27.8 SECONDS (22.9-36.5) 03/21/18 05:35 PTT Comment - 03/21/18 05:35 Sodium 141 mmol/L (136-145) 03/21/18 05:35 Corrected Sodium 142 mmol/L (136-145) 03/21/18 05:35 Potassium 4.7 mmol/L (3.5-5.1) 03/21/18 05:35 Chloride 103 mmol/L (98-107) 03/21/18 05:35 Carbon Dioxide 23.5 mmol/L (21-32) 03/21/18 05:35 BUN 34 mg/dL (7-18) H 03/21/18 05:35 Creatinine 4.47 mg/dL (0.55-1.02) H 03/21/18 05:35 Est GFR (MDRD) Af Amer 12 (>60) L 03/21/18 05:35 Est GFR (MDRD) Non-Af 10 (>60) L 03/21/18 05:35 Glucose 146 mg/dL (65-99) H 03/21/18 05:35 Calcium 8.5 mg/dL (8.5-10.1) 03/21/18 05:35 Corrected Calcium 9.4 mg/dL (8.5-10.1) 03/21/18 05:35 Magnesium 1.5 mg/dL (1.7-2.9) L 03/21/18 05:35 Total Bilirubin 0.50 mg/dL (0.2-1.0) 03/21/18 05:35 AST 20 Units/L (15-37) 03/21/18 05:35 ALT 15 Units/L (12-78) 03/21/18 05:35 Alkaline Phosphatase 82 Units/L (46-116) 03/21/18 05:35 Creatine Kinase 64 Units/L (26-192) 03/21/18 05:35 CK-MB (CK-2) 1.7 ng/mL (0-4.0) 03/21/18 05:35 CK/CKMB % Calc 2.7 % (<4) 03/21/18 05:35 Troponin I 0.02 ng/mL (0-1.5) 03/21/18 05:35 Total Protein 6.0 g/dL (6.4-8.2) L 03/21/18 05:35 Albumin 2.9 g/dL (3.4-5.0) L 03/21/18 05:35 Globulin 3.1 g/dL (2.5-4.5) 03/21/18 05:35 Albumin/Globulin Ratio 0.9 Ratio (1.1-2.1) L 03/21/18 05:35 - Diagnosis Discharge Problem: Accelerated hypertension, Pulmonary infiltrate, Bilateral pleural effusion, Hyperglycemia, Hemodialysis patient, Old anterior myocardial infarction Congestive heart failure (CHF) Qualifiers: Heart failure chronicity: unspecified Kidney failure Qualifiers: Renal failure chronicity: chronic Chronic kidney disease stage: on chronic dialysis Qualified Code(s): N18.6 - End stage renal disease; Z99.2 - Dependence on renal dialysis - Discharge Plan Disposition: ADMITTED INPATIENT Condition: Stable - Follow ups/Referrals Follow ups/Referrals: DAREK MORENO [Primary Care Provider] - 3 days - Instructions
[2018-03-21 05:53] LABS: EOSINOPHILS # (AUTO) 0.1 x10^3/uL (0.0-0.2); EOSINOPHILS % (AUTO) 2.9 % (0.9-2.9); HEMATOCRIT 28.8 % (36.0-47.0); HEMOGLOBIN 9.8 g/dL (12.0-16.0); LYMPHOCYTES % (AUTO) 22.1 % (21.0-51.0); MEAN CORPUSCULAR HEMOGLOBIN 30.5 pg (27.0-34.0); MEAN CORPUSCULAR HGB CONC 33.9 g/dL (33.0-35.0); MEAN CORPUSCULAR VOLUME 89.9 fL (80.0-100.0); MEAN PLATELET VOLUME 7.4 fL (7.4-11.0); MONOCYTES # (AUTO) 0.3 x10^3/uL (0.3-0.8); MONOCYTES % (AUTO) 6.6 % (0.0-13.0); NEUTROPHILS % (AUTO) 67.4 % (42.0-75.0); PLATELET COUNT 168 X10^3/uL (150.0-450.0); RED CELL DISTRIBUTION WIDTH 15.4 % (11.6-16.5); WHITE BLOOD COUNT 4.5 X10^3/uL (3.6-10.0)
[2018-03-21 06:03] LABS: CALCIUM 8.5 mg/dL (8.5-10.1); CARBON DIOXIDE 23.5 mmol/L (21-32); CREATININE 4.47 mg/dL (0.55-1.02); TROPONIN I 0.02 ng/mL (0-1.5)
--- NOTE | 2018-03-21 06:04 | RAD ---
Chest, one view Indication: Chest pain Comparison: 03/14/2017 Findings: There is stable cardiomegaly. Prior CABG changes noted. There is worsening pulmonary vascular congestion and diffuse bilateral interstitial prominence, suggestive for edema. Small left greater than right pleural effusions are also seen with adjacent bibasilar opacities, likely atelectasis. No pneumothorax identified. Impression: Cardiomegaly with mild interstitial edema and small left greater than right pleural effusions, collectively suggestive for CHF. Bibasilar opacities likely reflect atelectasis. Pneumonia not excluded. Reported By:
[2018-03-21 06:07] LABS: ALBUMIN 2.9 g/dL (3.4-5.0); CKMB % 2.7 % (<4); COR CA(FOR HYPOALB) 9.4 mg/dL (8.5-10.1); CREATINE KINASE MB 1.7 ng/mL (0-4.0); MAGNESIUM 1.5 mg/dL (1.7-2.9)
[2018-03-21] MEDS ORDERED: CATAPRES TAB 0.2 MG PO ONE (06:10)
[2018-03-21] MEDS ORDERED: CATAPRES TAB 0.2 MG ONE (06:10)
[2018-03-21] MEDS ORDERED: ROCEPHIN VIAL 1 GRAM IVP ONE (06:13)
[2018-03-21] MEDS ORDERED: ROCEPHIN VIAL 1 GRAM ONE (06:15)
[2018-03-21] MEDS ORDERED: ZAROXOYLN PO ONE ×2 (06:28→06:45)
[2018-03-21] MEDS ORDERED: TUSSIONEX PENNKINETIC SUSP PO PRN (06:34)
[2018-03-21] MEDS ORDERED: APRESOLINE TAB 25 MG PO STA (06:39)
[2018-03-21] MEDS ORDERED: HumuLIN R SC PRN (06:39)
[2018-03-21] MEDS ORDERED: SALINE 3% 15 ML NEB TX NEB ONE (07:45)
[2018-03-21] MEDS: DUONEB 0.5 MG/3 MG NEB SCH ×5 (07:45→21:45)
[2018-03-21] MEDS: ZAROXOYLN PO SCH (09:11)
[2018-03-21] MEDS: LASIX IVP SCH ×2 (09:11→20:01)
[2018-03-21] MEDS ORDERED: CATAPRES-TTS-1 TD SCH (10:00)
[2018-03-21] MEDS: ASPIRIN 81 MG CHEWTAB PO SCH (10:55)
[2018-03-21] MEDS: ROCEPHIN VIAL 1 GRAM IVP SCH (10:56)
[2018-03-21] MEDS: PRAVACHOL PO SCH (10:56)
[2018-03-21] MEDS: ROBITUSSIN DM PO SCH ×4 (10:56→20:17)
[2018-03-21] MEDS: NORVASC TAB 5 MG PO SCH ×2 (10:57→20:02)
[2018-03-21] MEDS: COREG TAB 12.5 MG PO SCH ×2 (10:57→20:01)
[2018-03-21] MEDS: APRESOLINE TAB 25 MG PO SCH ×2 (16:35→21:29)
[2018-03-21] MEDS: XANAX PO PRN (16:36)
[2018-03-21] MEDS: RENAGEL PO SCH ×2 (16:36→21:29)
[2018-03-21] MEDS ORDERED: RESTORIL CAP 15 MG PO PRN (19:20)
[2018-03-21] MEDS ORDERED: NORCO 5/325 MG TAB PO PRN (19:20)
[2018-03-21] MEDS ORDERED: MAGNESIUM SULFATE 1 GRAM/100 mL PREMIX 1 GM/100 ML BAG IV PRN (19:29)
[2018-03-22] MEDS ORDERED: VISTARIL PO PRN (00:09)
[2018-03-22] MEDS: XANAX PO PRN (01:05)
[2018-03-22] MEDS: DUONEB 0.5 MG/3 MG NEB SCH ×5 (01:08→20:17)
[2018-03-22 04:26] VITALS: BMI 22.3
[2018-03-22] MEDS: APRESOLINE TAB 25 MG PO SCH ×3 (05:27→21:03)
[2018-03-22] MEDS: RENAGEL PO SCH ×3 (05:28→21:03)
[2018-03-22 06:30] LABS: BASOPHILS % (AUTO) 0.9 % (0.2-1.0); EOSINOPHILS # (AUTO) 0.2 x10^3/uL (0.0-0.2); EOSINOPHILS % (AUTO) 2.8 % (0.9-2.9); HEMOGLOBIN 10.4 g/dL (12.0-16.0); LYMPHOCYTES % (AUTO) 16.9 % (21.0-51.0); MEAN CORPUSCULAR HEMOGLOBIN 30.4 pg (27.0-34.0); MEAN CORPUSCULAR HGB CONC 33.6 g/dL (33.0-35.0); MEAN CORPUSCULAR VOLUME 90.5 fL (80.0-100.0); MEAN PLATELET VOLUME 7.6 fL (7.4-11.0); MONOCYTES # (AUTO) 0.3 x10^3/uL (0.3-0.8); MONOCYTES % (AUTO) 5.7 % (0.0-13.0); NEUTROPHILS # (AUTO) 4.1 x10^3/uL (2.2-4.8); NEUTROPHILS % (AUTO) 73.7 % (42.0-75.0); PLATELET COUNT 201 X10^3/uL (150.0-450.0); RED BLOOD COUNT 3.43 X10^6/uL (3.5-5.4); RED CELL DISTRIBUTION WIDTH 15.6 % (11.6-16.5); WHITE BLOOD COUNT 5.6 X10^3/uL (3.6-10.0)
[2018-03-22 06:50] LABS: ALBUMIN 3.1 g/dL (3.4-5.0); CALCIUM 8.7 mg/dL (8.5-10.1); CARBON DIOXIDE 21.1 mmol/L (21-32); CHOL/HDL RATIO 3.1 (0.0-5.0); COR CA(FOR HYPOALB) 9.4 mg/dL (8.5-10.1); CREATININE 5.61 mg/dL (0.55-1.02); TOTAL PROTEIN 6.2 g/dL (6.4-8.2)
[2018-03-22] MEDS: COREG TAB 12.5 MG PO SCH ×2 (08:25→20:52)
[2018-03-22] MEDS: NORVASC TAB 5 MG PO SCH ×2 (08:25→20:52)
[2018-03-22] MEDS: PRAVACHOL PO SCH (08:25)
[2018-03-22] MEDS: ROCEPHIN VIAL 1 GRAM IVP SCH (08:25)
[2018-03-22] MEDS: LASIX IVP SCH ×2 (08:25→20:51)
[2018-03-22] MEDS: ROBITUSSIN DM PO SCH ×5 (08:25→21:09)
[2018-03-22] MEDS: ZAROXOYLN PO SCH (08:26)
[2018-03-22] MEDS: ASPIRIN 81 MG CHEWTAB PO SCH (08:26)
--- NOTE | 2018-03-22 09:49 | CT ---
HISTORY: Altered mental status Study: CT brain without contrast Comparison: None Technique: Multiple axial images of the brain were obtained from the skull base to the vertex without administration of IV contrast. Findings: No acute intraparenchymal hemorrhage or mass can be identified. No extra-axial fluid collections are seen. No alteration in the attenuation of the brain parenchyma can be identified to suggest acute or subacute ischemic change. The ventricular system is symmetric and nondilated. There is chronic periventricular white matter disease observed and age-appropriate generalized atrophy. IMPRESSION: 1. No acute intracranial process can be identified. 2. Chronic periventricular white matter disease likely on the basis of small vessel ischemic change. 3. Age-appropriate atrophic changes are seen. Reported By:
[2018-03-22] MEDS ORDERED: KLONOPIN TAB 0.5 MG PO SCH (10:00)
--- NOTE | 2018-03-22 17:03 | DR.H&P ---
H&P - History & Physical for Day of: H&P Date: 03/21/18 - Chief Complaint Chief Complaint: HYPERTENSION, WEAKNESS, CONFUSION - History of Present Illness History of Present Illness: IS A 73 YEAR OLD PATIENT OF [email or web address] WHO PRESENTED TO THE EMERGENCY ROOM WITH COMPLAINTS OF INCREASED BLOOD PRESSURE AND WEAKNESS. FAMILY REPORTS THAT SHE HAS HAD SWELLING IN HER LEGS AND CONFUSION AT TIMES. SYMPTOMS REPORTEDLY STARTED EARLY THIS MORNING. SHE HAS A HISTORY OF RENAL FAILURE AND RECEIVES DIALYSIS ON THURSDAY, THURSDAY, AND FRIDAYS. ON ARRIVAL, SHE IS ALERT AND ORIENTED. VITALS WERE 99.0-93-22-97%-185/85. LABS WERE OBTINED. ABNORMAL LAB VALUES INCLUDE THE FOLLOWING: RBC 3.20, HGB 9.8, HCT 28.8, BUN 34, CREATININE 4.47, GLUCOSE 146, MAGNESIUM 1.5, TOTAL PROTEIN 6.0, ALBUMIN 2.9. A CHEST XRAY WAS OBTAINED AND REVEALED: Cardiomegaly with mild interstitial edema and small left greater than right pleural effusions, collectively suggestive for CHF. Bibasilar opacities likely reflect atelectasis. Pneumonia not excluded. EKG REVEALED: SINUS RHYTHM WITH HR 98. BLOOD PRESSURE INCREASED TO 237/107 WHILE IN THE ER. SHE WAS GIVEN CATAPRES 0.2MG PO X 1 DOSE, ZAROXYLN 5MG X 1, LASIX 60MG IV X 1, AND APRESOLINE 100MG PO X 1 IN THE ER. BLOOD PRESSURE DECREASED TO 197/83. SHE WAS ADMITTED TO THE INTENSIVE CARE UNIT FOR FURTHER EVALUATION AND TREATMENT OF ACCELERATED HTN, CHF, PULMONARY INFILTRATE, AND RENAL FAILURE. SHE WAS STARTED ON ROCEPHIN GM IV DAILY, RESPIRATORY TREATMENTS, SUPPLEMENTAL OXYGEN, LASIX 40MG IV BID, AND CATAPRES 0.1MG TD PATCH. HOME MEDICATIONS WERE RESUMED. SHE WILL RECEIVE DIALYSIS TOMORROW MORNING. OTHERWISE, WE WILL FOLLOW UP WITH AM LABS AND CHEST XRAY AND CONTINUE TO MONITOR. - Past Medical History Past Medical History: Anemia, Diabetes, Hypertension, Renal Disease - Past Surgical History Surgical History: CABG/Valve Surgery - Family History Family Medical History: Diabetes Mellitus, Cancer, Coronary Artery Disease, Hypertension - Social History Does patient currently use any type of tobacco product: No Have you used tobacco products in the last 12 months: No Type of Tobacco Use: None Does any household member use tobacco: No Alcohol Use: None Drug Use: None - Medications Home Medications: Sulfa (Sulfonamide Antibiotics) [SULFA] Allergy (Verified 03/15/17 04:03) sulfamethoxazole [From Bactrim] Allergy (Verified 03/15/17 04:03) trimethoprim [From Bactrim] Allergy (Verified 03/15/17 04:03) CONTINUE taking the following medications alprazolam 0.25 mg PO BID PRN 03/21/18 [History] amitriptyline 25 mg PO DAILY 03/21/18 [History] amlodipine 5 mg PO BID 03/21/18 [History] aspirin [Aspirin Childrens] 81 mg PO QDAY 03/21/18 [History] carvedilol 12.5 mg PO BID 03/21/18 [History] furosemide 40 mg PO BID 03/21/18 [History] hydralazine 100 mg PO TID 03/21/18 [History] potassium chloride [Klor-Con] 20 meq PO BID 03/21/18 [History] pravastatin 40 mg PO DAILY 03/21/18 [History] sertraline 50 mg PO DAILY 03/21/18 [History] sevelamer carbonate [Renvela] 800 mg PO TID 03/21/18 [History] - Review of Systems Constitutional: See HPI, Weakness Eyes: No Symptoms Reported ENT: No Symptoms Reported Respiratory: No Symptoms Reported Cardiovascular: Edema (BILATERAL LOWER EXTREMITY EDEMA ) Gastrointestinal: No Symptoms Reported Genitourinary: No Symptoms Reported Musculoskeletal: No Symptoms Reported Skin: No Symptoms Reported Neurological: Weakness - Physical Exam Vital Signs: Temperature 97.4 F Pulse Rate [Right] 96 Pulse Rate 79 Respiratory Rate 25 Blood Pressure [Left Arm] 183/75 Blood Pressure [Right Arm] 229/95 Blood Pressure 219/94 O2 Sat by Pulse Oximetry 94 Oriented: Normal Eyes: Normal Ear: Normal Nose: Normal Throat: Normal Respiratory: Diminished Throughout Cardiovascular: Normal, Edema (BILATERAL LOWER EXTREMITY 1+ PITTING EDEMA ). negative: S3, S4, Murmur : Normal Auscultation: Bowel Sounds: Normal Palpation: Normal Tenderness: Normal Skin: Normal Musculoskeletal: Normal Psychiatric: Normal Mood Description: Calm Affect: Normal Speech Pattern: Clear - Assessment/Plan (1) Accelerated hypertension Status: Acute Plan: NORVASC 5MG PO BID, COREG 12.5MG PO BID, APRESOLINE 100MG PO TID, CATAPRES 0.1MG TD PATCH, CONTINUE TO MONITOR (2) Congestive heart failure (CHF) Qualifiers: Heart failure chronicity: unspecified Status: Acute Plan: LASIX 40MG IV BID, CONTINUE TO MONITOR (3) Pulmonary infiltrate Status: Acute Plan: ROCEPHIN 1GM IV DAILY, RESPIRATORY TREATMENTS, SUPPLEMENTAL OXYGEN, CONTINUE TO MONITOR (4) Kidney failure Qualifiers: Renal failure chronicity: chronic Chronic kidney disease stage: on chronic dialysis Qualified Code(s): N18.6 - End stage renal disease; Z99.2 - Dependence on renal dialysis Status: Chronic Plan: DIALYSIS TOMORROW, CONTINUE TO MONITOR - Allergies Allergies/Adverse Reactions: Allergies Allergy/AdvReac Type Severity Reaction Status Date / Time Sulfa (Sulfonamide Allergy Verified 03/15/17 04:03 Antibiotics) [SULFA] sulfamethoxazole Allergy Verified 03/15/17 04:03 [From Bactrim] trimethoprim [From Bactrim] Allergy Verified 03/15/17 04:03
[2018-03-22] MEDS ORDERED: CATAPRES-TTS-2 TD SCH (20:00)
[2018-03-22] MEDS ORDERED: XANAX PO SCH (21:00)
[2018-03-22 21:32] VITALS: BP 186/83
--- NOTE | 2018-04-11 22:23 | DR.CARTERD ---
- Discharge Summary for: Discharge Summary for Date of:: 03/22/18 - Admission Date Date of Admission: 03/21/18 - Admission Diagnoses Admission Diagnosis: (1) Congestive heart failure (CHF) (2) Pulmonary infiltrate (3) Accelerated hypertension (4) Kidney failure - Discharge Date Discharge Date: 03/22/18 - Discharge Diagnoses Discharge Diagnosis: (1) Congestive heart failure (CHF) (2) Pulmonary infiltrate (3) Accelerated hypertension (4) Kidney failure - Hospital Course Hospital Course: DAY ONE, MS. MOREJON IS A 73 YEAR OLD PATIENT OF [employer] WHO PRESENTED TO THE EMERGENCY ROOM WITH COMPLAINTS OF INCREASED BLOOD PRESSURE AND WEAKNESS. FAMILY REPORTED THAT SHE HAS HAD SWELLING IN HER LEGS AND CONFUSION AT TIMES. SYMPTOMS REPORTEDLY STARTED EARLY THIS MORNING. SHE HAS A HISTORY OF RENAL FAILURE AND RECEIVES DIALYSIS ON THURSDAY, THURSDAY, AND FRIDAYS. ON ARRIVAL, SHE WAS ALERT AND ORIENTED. VITALS WERE 99.0-93-22-97%-185/85. LABS WERE OBTAINED. ABNORMAL LAB VALUES INCLUDED THE FOLLOWING: RBC 3.20, HGB 9.8, HCT 28.8, BUN 34, CREATININE 4.47, GLUCOSE 146, MAGNESIUM 1.5, TOTAL PROTEIN 6.0, ALBUMIN 2.9. A CHEST XRAY WAS OBTAINED AND REVEALED: Cardiomegaly with mild interstitial edema and small left greater than right pleural effusions, collectively suggestive for CHF. Bibasilar opacities likely reflect atelectasis. Pneumonia not excluded. EKG REVEALED: SINUS RHYTHM WITH HR 98. BLOOD PRESSURE INCREASED TO 237/107 WHILE IN THE ER. SHE WAS GIVEN CATAPRES 0.2MG PO X 1 DOSE, ZAROXYLN 5MG X 1, LASIX 60MG IV X 1, AND APRESOLINE 100MG PO X 1 IN THE ER. BLOOD PRESSURE DECREASED TO 197/83. SHE WAS ADMITTED TO THE INTENSIVE CARE UNIT FOR FURTHER EVALUATION AND TREATMENT OF ACCELERATED HTN, CHF, PULMONARY INFILTRATE, AND RENAL FAILURE. SHE WAS STARTED ON ROCEPHIN GM IV DAILY, RESPIRATORY TREATMENTS, SUPPLEMENTAL OXYGEN, LASIX 40MG IV BID, AND CATAPRES 0.1MG TD PATCH. HOME MEDICATIONS WERE RESUMED. WE FOLLOWED UP WITH AM LABS AND CHEST XRAY AND CONTINUED TO MONITOR. DAY TWO. PATIENT NOTED TO BE ASLEEP DURING MORNING ROUNDS. SHE DID RESPOND VERBALLY WHEN AROUSED WITH VERBAL STIMULI. BLOOD PRESSURE THIS AM WAS 234/100. A BRAIN CT WAS PERFORMED AND REVEALED: No acute Intracranial process can be identified. Chronic periventricular white matter disease likely on the basis of small vessel ischemic change. Age-appropriate atrophic changes are seen. PATIENT WENT TO DIALYSIS. WHILE AT DIALYSIS STAFF NOTED STROKE LIKE SYMPTOMS. STAFF FROM [facility] CALLED STATING THE PATIENT WAS HAVING STOKE LIKE SYMPTOMS INCLUDING FACIAL DROOP TO LEFT SIDE OF FACE, HAVING TROUBLE FINDING WORDS, DIFFICULTY SIPPING FROM STRAW. PATIENT RETURNED TO [facility] TO ICU ROOM 2 FROM DIALYSIS. DIALYSIS REPORTED PATIENT HAVING HEADACHES ON AND OFF, N/V, LEG PAINS. AND CONTINUED DIFFICULTY WITH SPEECH. BLOOD PRESSURE WAS 182/96, HEART RATE WAS 116. WE DECIDED TO TRANSFER PATIENT TO A TERTIARY CARE CENTER FOR FURTHER EVALUATION AND TREATMENT OF SYMPTOMS. FAMILY WAS IN AGREEMENT WITH DISCUSSED PLAN FOR TRANSFER. PATIENT TRANSFERRED TO [facility] VIA EMS. - Discharge Medications Discharge Medications: Home Medication List alprazolam 0.25 mg PO BID PRN 03/21/18 [History] amitriptyline 25 mg PO DAILY 03/21/18 [History] amlodipine 5 mg PO BID 03/21/18 [History] aspirin [Aspirin Childrens] 81 mg PO QDAY 03/21/18 [History] carvedilol 12.5 mg PO BID 03/21/18 [History] furosemide 40 mg PO BID 03/21/18 [History] hydralazine 100 mg PO TID 03/21/18 [History] potassium chloride [Klor-Con] 20 meq PO BID 03/21/18 [History] pravastatin 40 mg PO DAILY 03/21/18 [History] sertraline 50 mg PO DAILY 03/21/18 [History] sevelamer carbonate [Renvela] 800 mg PO TID 03/21/18 [History] Prescriptions: - Discharge Disposition Discharge Disposition: PATIENT TRANSFERRED TO A TERTIARY CARE CENTER ([facility]) IN [place] FOR FURTHER EVALUATION AND TREATMENT.
== END 2018-03-22 22:20 | disposition short-term general hospital (02) | DRG 304 ==
LOC: ER 04:54 → ICU 06:32
PROVIDERS: ADMIT Internal Medicine; ATTEND Internal Medicine
DX: I16.0 Hypertensive urgency; J90 Pleural effusion, not elsewhere classified; I50.9 Heart failure, unspecified; Z99.2 Dependence on renal dialysis; R60.0 Localized edema; N17.8 Other acute kidney failure; I51.7 Cardiomegaly; I32 Pericarditis in diseases classified elsewhere; E11.22 Type 2 diabetes mellitus with diabetic chronic kidney disease; R94.31 Abnormal electrocardiogram [ECG] [EKG]; R41.82 Altered mental status, unspecified; E11.65 Type 2 diabetes mellitus with hyperglycemia; N18.6 End stage renal disease; I25.10 Atherosclerotic heart disease of native coronary artery without angina pectoris
CPT/HCPCS: 36415; 70450; 71010; 71045; 80053; 80061; 82550; 82553; 83735; 84484; 85025; 85610; 85730; 87040; 93005; 94640; 96365; 96374; 96375; 99284; A4222; Q0177; J0696; J1940; J3475; J7620

== ENCOUNTER 2019-01-26 18:02 | Inpatient (IN) ==
[2019-01-26] MEDS ORDERED: CATAPRES TAB 0.2 MG PO ONE (18:16)
[2019-01-26] MEDS ORDERED: CATAPRES TAB 0.2 MG ONE (18:19)
[2019-01-26 18:54] LABS: BASOPHILS % (AUTO) 0.8 % (0.2-1.0); EOSINOPHILS # (AUTO) 0.2 x10^3/uL (0.0-0.2); HEMATOCRIT 33.6 % (36.0-47.0); HEMOGLOBIN 11.1 g/dL (12.0-16.0); LYMPHOCYTES # (AUTO) 1.1 X10^3/uL (1.3-2.9); LYMPHOCYTES % (AUTO) 20.2 % (21.0-51.0); MEAN CORPUSCULAR HEMOGLOBIN 30.5 pg (27.0-34.0); MEAN CORPUSCULAR HGB CONC 33.1 g/dL (33.0-35.0); MEAN CORPUSCULAR VOLUME 92.1 fL (80.0-100.0); MEAN PLATELET VOLUME 7.3 fL (7.4-11.0); MONOCYTES # (AUTO) 0.6 x10^3/uL (0.3-0.8); MONOCYTES % (AUTO) 11.3 % (0.0-13.0); NEUTROPHILS # (AUTO) 3.5 x10^3/uL (2.2-4.8); NEUTROPHILS % (AUTO) 64.7 % (42.0-75.0); PLATELET COUNT 218 X10^3/uL (150.0-450.0); RED BLOOD COUNT 3.64 X10^6/uL (3.5-5.4); RED CELL DISTRIBUTION WIDTH 16.4 % (11.6-16.5); WHITE BLOOD COUNT 5.4 X10^3/uL (3.6-10.0)
[2019-01-26 19:04] LABS: ALANINE AMINOTRANSFERASE 15 Units/L (12-78); ALBUMIN 3.9 g/dL (3.4-5.0); ALKALINE PHOSPHATASE 92 Units/L (46-116); ASPARTATE AMINO TRANSFERASE 20 Units/L (15-37); BLOOD UREA NITROGEN 26 mg/dL (7-18); CALCIUM 8.4 mg/dL (8.5-10.1); CARBON DIOXIDE 30.3 mmol/L (21-32); CHLORIDE 99 mmol/L (98-107); COR NA(FOR HYPERGLY) 144 mmol/L (136-145); SODIUM 143 mmol/L (136-145); TOTAL PROTEIN 7.1 g/dL (6.4-8.2); eGFR NON BLACK RACES 10 (>60)
--- NOTE | 2019-01-26 19:08 | DR.DIZZY ---
HPI Time seen Time Seen by Provider: 01/26/19 18:56 Complaint Chief Complaint Doctor Comments: Patient is a 73-year-old female who presents for fatigue and decreased alertness. She was at dialysis today and finished her dialysis appointment with family were concerned about her and brought her to the ED after the dialysis appointment because she was less alert than usual. Patient did have a fall last night and was seen in this ED. CT of head and neck was normal yesterday. Chief Complaint:: EMS , CALLED OUT TO PT BEING WEAK AT DIALISIS, PT FINISHED HER DIALYSIS AND SHE IS NOTED TO BE LEATHARGIC PER NURSE , HTN 201/68, AND C/O DIEGO.. EMS STATES PT IS ALERT AND SHE STATES " I DON'T FEEL WELL " PT SEEN IN ER LASTNIGHT DUE TO FALL ,, Self Treatment fo Chief Complaint: PT'S COLOR , APPEARS TO BE JAUNDICE , PT IS DROWSY AND AWAKENS WHEN SHE IS CALLED ,BR Source History Provided: Patient Mode of Arrival Mode of Arrival: Stretcher Timing Onset of Chief Complaint: 01/26/19 Symptom Onset: Unknown Location of Weakness Weakness Location: Generalized Context History of: CVA Stroke Symptoms: Dizziness PMH PMH Past Medical History: Yes Past Medical History: Anemia, Coronary Artery Disease, Diabetes, Dialysis, Hypertension and Renal Disease Past Surgical History: Yes Surgical History: Angioplasty/Stents and CABG/Valve Surgery Family History History of Family Medical Conditions: Yes Family Medical History: Diabetes Mellitus, Cancer, Coronary Artery Disease and Hypertension Social History Does patient currently use any type of tobacco product: No Have you used tobacco products in the last 12 months: No Type of Tobacco Use: None Does any household member use tobacco: No Alcohol Use: None Do you use any recreational Drugs:: No Lives With: Family Lives Where: Home infectious screening In the last 2 months have you had wt loss of >10#?: NO Have you had fever, night sweats or hemotysis?: No Have you traveled outside the country in the last 6 months?: No Isolation: Standard ROS Review of Systems Constitutional: Weakness and Fatigue Eyes: No Symptoms Reported ENTM: No Symptoms Reported Respiratoy: No Symptoms Reported Cardiovascular: No Symptoms Reported Gastrointestinal/Abdominal: No Symptoms Reported Genitourinary: No Symptoms Reported Neurological: Headache and Problems Walking Musculoskeletal: No Symptoms Reported Integumentary: No Symptoms Reported Hematologic/Lymphatic: No Symptoms Reported Endocrine: No Symptoms Reported Psychiatric: No Symptoms Reported All Other Systems: Reviewed and Negative PE Vital Signs Vitals: Temperature 98.0 F Pulse Rate [Apical] 51 Pulse Rate 52 Respiratory Rate 13 Blood Pressure [Left Arm] 152/70 Blood Pressure 153/68 O2 Sat by Pulse Oximetry 100 General Limitations: No Limitations General Appearance: Alert, In No Apparent Distress and Other (sleepy) Head Head Exam: Normocephalic and Other (hematoma of left side of head and periorbital ) Eyes Eye exam: Normal Appearance, EOMI and Conjunctival Injection ENT ENT Exam: Normal Exam, Normal Oropharynx and Other (laceration of lower mid lip superficial ) Neck Neck Exam: Normal Inspection Respiratory Respiratory Exam: Normal Lung Sounds Bilat Respiratory Exam: Bilateral: Clear to Auscultation Cardiovascular Cardiovascular Exam: Regular Rate and Normal Rhythm Abdominal Exam Abdominal Exam: Normal Inspection, Normal Bowel Sounds and Soft Extremeties Extremities Exam: Normal Inspection, Full ROM and Other (AV fistula left arm ) Neurologic Neurological Exam: Alert and Oriented X3 Patient Oriented To: Person, Place and Time Speech: Fluid Speech Motor Strength - LUE: 5/5 Motor Strength - RUE: 5/5 Motor Strength - LLE: 5/5 Motor Strength - RLE: 5/5 Psychiatric Psychiatric Exam: Normal Affect Skin Skin Exam: Warm, Dry, Intact and Other MDM Additional Information Obtained Additional Information Obtained From: Old Records, Family and Blackener Differential Diagnosis Differential Diagnosis: Dehydration and Other COURSE Treatment Treatment: Pt is encepholpathic has had changes since yesterday. Pt family admits that medication could be cause. Pt did receive full HD, taking with Supervisor Looping ( Dr. Tejada) he advised pt is not normally like this. Pt CXR showed inflitrates, lactic aid was neg, blood ctx draw, vital stable thru out stay inED. Htn was addressed. Pt did perk up and was able to orient to person/place/and time. She had no facial droop/focal weakness/pt was able to speak. Critical Care: The probability of sudden, clinically significant deterioration in the patient's condition required the highest level of my preparedness to intervene urgently. The services I provided to this patient were to treat and/ or prevent clinically significant deterioration that could result in: . Services include the following: chart date review, reviewing nursing notes and/ or old charts, documentation time, bus info consultant collaboration regarding findings and treatment options, medication orders and management, direct patient care, vital sign assessments and ordering, interpreting and reviewing diagnostic studies/ lab tests. Aggregate critical care time was 31 minutes, which includes only the time during which I was engaged in work directly related to the patient's care, as described above, whether at the bedside or elsewhere in the Emergency Department. It did not include the time spent performing other reported procedures or the services of residents, students, nurses, or physician assistants. Reevaluation 1st: Improved (19:29 BP reduced, pt mental increased. ) 2nd: Worsened (22:00 worsening mentation) 3rd: Unchanged (discussed pt and admission, 23:55 pt is stable. ) Consultation Called: 23:50 Call Returned: 23:50 Consultation Comments: admitted to Dr. Hale Education/Counseling Education/Counseling: Patient, Family, Education and Counseling Educated On: Treatment, Diagnosis, Prognosis and Needs for Follow Up ROR Labs Reviewed Laboratory Results Reviewed?: Yes Result Diagrams: 01/26/19 18:35 01/26/19 18:35 Laboratory: WBC 5.4 X10^3/uL (3.6-10.0) 01/26/19 18:35 RBC 3.64 X10^6/uL (3.5-5.4) 01/26/19 18:35 Hgb 11.1 g/dL (12.0-16.0) L 01/26/19 18:35 Hct 33.6 % (36.0-47.0) L 01/26/19 18:35 MCV 92.1 fL (80.0-100.0) 01/26/19 18:35 MCH 30.5 pg (27.0-34.0) 01/26/19 18:35 MCHC 33.1 g/dL (33.0-35.0) 01/26/19 18:35 RDW 16.4 % (11.6-16.5) 01/26/19 18:35 Plt Count 218 X10^3/uL (150.0-450.0) 01/26/19 18:35 MPV 7.3 fL (7.4-11.0) L 01/26/19 18:35 Neut % (Auto) 64.7 % (42.0-75.0) 01/26/19 18:35 Lymph % (Auto) 20.2 % (21.0-51.0) L 01/26/19 18:35 [place] % (Auto) 11.3 % (0.0-13.0) 01/26/19 18:35 Eos % (Auto) 3.0 % (0.9-2.9) H 01/26/19 18:35 Baso % (Auto) 0.8 % (0.2-1.0) 01/26/19 18:35 Neut # (Auto) 3.5 x10^3/uL (2.2-4.8) 01/26/19 18:35 Lymph # (Auto) 1.1 X10^3/uL (1.3-2.9) L 01/26/19 18:35 [place] # (Auto) 0.6 x10^3/uL (0.3-0.8) 01/26/19 18:35 Eos # (Auto) 0.2 x10^3/uL (0.0-0.2) 01/26/19 18:35 Baso # (Auto) 0.0 X10^3/uL (0.0-0.1) 01/26/19 18:35 Absolute Nucleated RBC 0.0 /100WBC 01/26/19 18:35 Sodium 143 mmol/L (136-145) 01/26/19 18:35 Corrected Sodium 144 mmol/L (136-145) 01/26/19 18:35 Potassium 3.5 mmol/L (3.5-5.1) 01/26/19 18:35 Chloride 99 mmol/L (98-107) 01/26/19 18:35 Carbon Dioxide 30.3 mmol/L (21-32) 01/26/19 18:35 BUN 26 mg/dL (7-18) H 01/26/19 18:35 Creatinine 4.60 mg/dL (0.55-1.02) H 01/26/19 18:35 Est GFR (MDRD) Af Amer 12 (>60) L 01/26/19 18:35 Est GFR (MDRD) Non-Af 10 (>60) L 01/26/19 18:35 Glucose 129 mg/dL (65-99) H 01/26/19 18:35 Lactic Acid 1.3 mmol/L (0.4-2.0) 01/26/19 18:35 Calcium 8.4 mg/dL (8.5-10.1) L 01/26/19 18:35 Corrected Calcium TNP 01/26/19 18:35 Total Bilirubin 0.60 mg/dL (0.2-1.0) 01/26/19 18:35 AST 20 Units/L (15-37) 01/26/19 18:35 ALT 15 Units/L (12-78) 01/26/19 18:35 Alkaline Phosphatase 92 Units/L (46-116) 01/26/19 18:35 Total Protein 7.1 g/dL (6.4-8.2) 01/26/19 18:35 Albumin 3.9 g/dL (3.4-5.0) 01/26/19 18:35 Globulin 3.2 g/dL (2.5-4.5) 01/26/19 18:35 Albumin/Globulin Ratio 1.2 Ratio (1.1-2.1) 01/26/19 18:35 Other Results Comments: Name: JONN MOREJON AAcct#: [id number]: [id number] : 1945Sex: FLocation: ER Order Number(s): [id number](s):CERVICAL SPINE W/O CON Ordering Physician: DAYAN AMIN Primary Care: Anabelle Guevara Service Date: 01/25/19 Service Time: 2235 CT cervical spine without contrast Indication: Fall Technique: Helical CT images of the cervical spine were obtained without IV contrast. Reformatted images in the coronal and sagittal planes were also generated for review. Comparison: None Findings: Vertebral body heights and alignment are normal. No acute fracture or subluxation is identified. No prevertebral soft tissue swelling seen. Moderate degenerative disc disease at C5-C6 and mild-moderate facet arthropathy throughout the remainder of the cervical spine noted. Diffuse vascular calcifications and small partially visualized right greater than left pleural effusions. Impression: No acute fracture or subluxation of the cervical spine. Additional findings as above. Name: JONN MOREJON AAcct#: [id number]: [id number] : 1945Sex: FLocation: ER Order Number(s): [id number](s):BRAIN W/O CON Ordering Physician: DAYAN AMIN Primary Care: Anabelle Guevara Service Date: 01/25/19 Service Time: 2235 CT head without contrast Indication: Fall Technique: Helical CT images of the brain were obtained without IV contrast. Reformatted images in the coronal and sagittal planes were also generated for review. Comparison: 10/13/2018 Findings: There is age-appropriate generalized cerebral atrophy with commensurate ventricular and sulcal enlargement. Small remote infarct of the left thalamus and patchy areas of periventricular and subcortical white matter hypoattenuation appear unchanged and are most compatible with chronic small vessel ischemic disease. There is no intracranial hemorrhage, extra-axial collection, hydrocephalus, mass or midline shift. Visualized paranasal sinuses and mastoid air cells are clear. Imaged extracranial structures are grossly unremarkable. Impression: No acute intracranial abnormality. Stable age related atrophy and chronic microangiopathy. Service Date: 01/25/19 Service Time: [address] without contrast Indication: Fall Technique: Helical CT images of the maxillofacial bones were obtained without IV contrast. Reformatted images in the coronal and sagittal planes were also generated for review. Comparison: None Findings: No acute maxillofacial or mandibular fractures are identified. The nasal bones are intact. The paranasal sinuses and visualized mastoid air cells are predominantly clear. Imaged upper cervical spine is intact. Impression: No acute maxillofacial or mandibular fractures. XRAY XRAY Interpreted by: Both XRAY Findings: Bilatera inflitrates or edema EKG Compared to prior EKG Dated: 10/13/18 Rate: 52 [place]: LAD Rhythm: NSR Block: None Hypertrophy: LVH ST: Normal Opioid Opioid Risk Tool Age (Santos box if 16-45): No History of Preadolescent Sexual Abuse: No Total: 0 Total Score Risk Category: Low Risk Copyright: Brandon GONZALEZ predicting aberrant behaviors Diagnosis Discharge Problem: Encephalopathy acute Pneumonia Qualifiers: Pneumonia type: due to unspecified organism Laterality: bilateral Lung location: unspecified part of lung Qualified Code(s): J18.9 - Pneumonia, unspecified organism Narrative Support Text: Admit to Dr. Barragan. @ 11:53
[2019-01-26] MEDS ORDERED: TYLENOL SUPP 650 MG PR ONE (19:35)
[2019-01-26] MEDS ORDERED: TYLENOL 325 MG TAB PO ONE ×2 (19:46→19:55)
[2019-01-26] MEDS ORDERED: NS 1000 ML 1,000 ML ONE (21:55)
[2019-01-26] MEDS: NS 1000 ML 1,000 ML IV SCH (22:00)
[2019-01-26] MEDS ORDERED: ROCEPHIN VIAL 1 GRAM IM ONE (22:08)
[2019-01-26] MEDS ORDERED: ROCEPHIN VIAL 1 GRAM ONE (22:53)
[2019-01-26] MEDS: APRESOLINE INJ 20 MG VIAL IVP ONE (23:01)
[2019-01-26] MEDS ORDERED: ROCEPHIN VIAL 1 GRAM IVP ONE (23:02)
--- NOTE | 2019-01-26 23:48 | RAD ---
Chest, one view Indication: Looking for source of infections Comparison: 10/13/2018 Findings: There is stable enlargement of the cardiac silhouette. Prior CABG noted. There is a small right pleural effusion and hazy right basilar opacities. The remainder of the lungs are grossly clear. No pneumothorax. Impression: Small right pleural effusion and hazy right basilar opacities, either representing atelectasis and/or infiltrate. Correlate clinically. Reported By:
[2019-01-27] MEDS ORDERED: ASPIRIN PO ONE (00:31)
--- NOTE | 2019-01-27 00:49 | CT ---
CT head without contrast Indication: Acute AMS Technique: Helical CT images of the brain were obtained without IV contrast. Reformatted images in the coronal and sagittal planes were also generated for review. Comparison: 01/25/2019 Findings: Age related atrophy, chronic microangiopathic disease and small remote infarct of the left thalamus are unchanged since 2 days prior. Bailey-white differentiation is maintained. No visible acute infarction is identified. There is no intracranial hemorrhage, extra-axial collection, hydrocephalus or mass. Visualized paranasal sinuses and mastoid air cells are clear. Imaged extracranial structures are grossly unremarkable. Impression: No acute intracranial abnormality or significant change since 2 days prior. Reported By:
[2019-01-27] MEDS ORDERED: ASPIRIN ONE (01:22)
[2019-01-27 03:07] VITALS: BMI 16.6
[2019-01-27] MEDS ORDERED: SALINE 3% 15 ML NEB TX NEB ONE (05:43)
[2019-01-27 06:46] LABS: BASOPHILS % (AUTO) 0.8 % (0.2-1.0); EOSINOPHILS # (AUTO) 0.2 x10^3/uL (0.0-0.2); EOSINOPHILS % (AUTO) 5.7 % (0.9-2.9); HEMATOCRIT 26.9 % (36.0-47.0); LYMPHOCYTES # (AUTO) 0.9 X10^3/uL (1.3-2.9); LYMPHOCYTES % (AUTO) 28.2 % (21.0-51.0); MEAN CORPUSCULAR HEMOGLOBIN 30.7 pg (27.0-34.0); MEAN CORPUSCULAR HGB CONC 33.3 g/dL (33.0-35.0); MEAN CORPUSCULAR VOLUME 92.1 fL (80.0-100.0); MEAN PLATELET VOLUME 7.4 fL (7.4-11.0); MONOCYTES # (AUTO) 0.4 x10^3/uL (0.3-0.8); NEUTROPHILS # (AUTO) 1.8 x10^3/uL (2.2-4.8); NEUTROPHILS % (AUTO) 53.3 % (42.0-75.0); PLATELET COUNT 152 X10^3/uL (150.0-450.0); RED BLOOD COUNT 2.92 X10^6/uL (3.5-5.4); RED CELL DISTRIBUTION WIDTH 16.7 % (11.6-16.5); WHITE BLOOD COUNT 3.3 X10^3/uL (3.6-10.0)
[2019-01-27 07:04] LABS: ALANINE AMINOTRANSFERASE 9 Units/L (12-78); ALBUMIN 2.8 g/dL (3.4-5.0); ALKALINE PHOSPHATASE 66 Units/L (46-116); ASPARTATE AMINO TRANSFERASE 16 Units/L (15-37); BLOOD UREA NITROGEN 31 mg/dL (7-18); CALCIUM 8.1 mg/dL (8.5-10.1); CHLORIDE 102 mmol/L (98-107); COR CA(FOR HYPOALB) 9.1 mg/dL (8.5-10.1); CREATININE 5.74 mg/dL (0.55-1.02); SODIUM 143 mmol/L (136-145); TOTAL PROTEIN 5.4 g/dL (6.4-8.2); eGFR NON BLACK RACES 8 (>60)
[2019-01-27] MEDS ORDERED: MAXIPIME VIAL 1 GRAM IVP SCH (09:00)
[2019-01-27] MEDS: DUONEB 0.5 MG/3 MG NEB PRN ×2 (09:15→17:34)
--- NOTE | 2019-01-27 09:40 | DR.H&P ---
H&P History & Physical for Day of: H&P Date: 01/27/19 Chief Complaint Chief Complaint: weakness, SOB, confusion Allergies Allergies Allergy/AdvReac Type Severity Reaction Status Date / Time Sulfa (Sulfonamide Allergy Verified 01/26/19 18:52 Antibiotics) [SULFA] sulfamethoxazole Allergy Verified 01/26/19 18:52 [From Bactrim] trimethoprim [From Bactrim] Allergy Verified 10/13/18 15:07 History of Present Illness History of Present Illness: Ms. Mello us a 73y/o female with a PMH of CAD, CABG, ESRD on HD (M-W-F), DM, HTN presents from dialysis center with weakness, confusion and SOB. Patient missed her dialysis on Thursday. She had a full dialysis session yesterday and the grand-daughter noted that the patient appeared more weak, confused and not herself so patient was sent to ED from the center. She reports feeling weak and having shortness of breath. She does have oxygen at home but only uses it as needed with exertion. She denies chest pain, N/V/D or abdominal pain. She also had a fall a day prior at home when she fell on the steps of her porch. She was brought to the ED and had imaging done which did not show any acute fractures. Patient lives at home alone, able to do all the chores, does not use a device for ambulation. No recent changes in medications. Past Medical History Past Medical History: Anemia, Coronary Artery Disease, Diabetes, Dialysis, Hypertension and Renal Disease Past Surgical History Surgical History: CABG/Valve Surgery and Ortho Surgery Family History Family Medical History: Diabetes Mellitus, Cancer and Coronary Artery Disease Social History Does patient currently use any type of tobacco product: No Have you used tobacco products in the last 12 months: No Type of Tobacco Use: None Does any household member use tobacco: No Alcohol Use: None Drug Use: None Medications Home Medications: Sulfa (Sulfonamide Antibiotics) [SULFA] Allergy (Verified 01/26/19 18:52) sulfamethoxazole [From Bactrim] Allergy (Verified 01/26/19 18:52) trimethoprim [From Bactrim] Allergy (Verified 10/13/18 15:07) Labs Result Diagrams: 01/27/19 06:05 01/27/19 06:05 Labs: Laboratory WBC 3.3 X10^3/uL (3.6-10.0) L 01/27/19 06:05 RBC 2.92 X10^6/uL (3.5-5.4) L 01/27/19 06:05 Hgb 9.0 g/dL (12.0-16.0) L D 01/27/19 06:05 Hct 26.9 % (36.0-47.0) L 01/27/19 06:05 MCV 92.1 fL (80.0-100.0) 01/27/19 06:05 MCH 30.7 pg (27.0-34.0) 01/27/19 06:05 MCHC 33.3 g/dL (33.0-35.0) 01/27/19 06:05 RDW 16.7 % (11.6-16.5) H 01/27/19 06:05 Plt Count 152 X10^3/uL (150.0-450.0) 01/27/19 06:05 MPV 7.4 fL (7.4-11.0) 01/27/19 06:05 Neut % (Auto) 53.3 % (42.0-75.0) 01/27/19 06:05 Lymph % (Auto) 28.2 % (21.0-51.0) 01/27/19 06:05 [place] % (Auto) 12.0 % (0.0-13.0) 01/27/19 06:05 Eos % (Auto) 5.7 % (0.9-2.9) H 01/27/19 06:05 Baso % (Auto) 0.8 % (0.2-1.0) 01/27/19 06:05 Neut # (Auto) 1.8 x10^3/uL (2.2-4.8) L 01/27/19 06:05 Lymph # (Auto) 0.9 X10^3/uL (1.3-2.9) L 01/27/19 06:05 [place] # (Auto) 0.4 x10^3/uL (0.3-0.8) 01/27/19 06:05 Eos # (Auto) 0.2 x10^3/uL (0.0-0.2) 01/27/19 06:05 Baso # (Auto) 0.0 X10^3/uL (0.0-0.1) 01/27/19 06:05 Absolute Nucleated RBC 0.0 /100WBC 01/27/19 06:05 Sodium 143 mmol/L (136-145) 01/27/19 06:05 Corrected Sodium TNP 01/27/19 06:05 Potassium 3.5 mmol/L (3.5-5.1) 01/27/19 06:05 Chloride 102 mmol/L (98-107) 01/27/19 06:05 Carbon Dioxide 28.0 mmol/L (21-32) 01/27/19 06:05 BUN 31 mg/dL (7-18) H 01/27/19 06:05 Creatinine 5.74 mg/dL (0.55-1.02) H 01/27/19 06:05 Est GFR (MDRD) Af Amer 9 (>60) L 01/27/19 06:05 Est GFR (MDRD) Non-Af 8 (>60) L 01/27/19 06:05 Glucose 77 mg/dL (65-99) 01/27/19 06:05 POC Glucose (mg/dL) 71 mg/dL (65-99) 01/27/19 05:50 Lactic Acid 1.3 mmol/L (0.4-2.0) 01/26/19 18:35 Calcium 8.1 mg/dL (8.5-10.1) L 01/27/19 06:05 Corrected Calcium 9.1 mg/dL (8.5-10.1) 01/27/19 06:05 Total Bilirubin 0.40 mg/dL (0.2-1.0) 01/27/19 06:05 AST 16 Units/L (15-37) 01/27/19 06:05 ALT 9 Units/L (12-78) L 01/27/19 06:05 Alkaline Phosphatase 66 Units/L (46-116) 01/27/19 06:05 Total Protein 5.4 g/dL (6.4-8.2) L 01/27/19 06:05 Albumin 2.8 g/dL (3.4-5.0) L 01/27/19 06:05 Globulin 2.6 g/dL (2.5-4.5) 01/27/19 06:05 Albumin/Globulin Ratio 1.1 Ratio (1.1-2.1) 01/27/19 06:05 Review of Systems Constitutional: Weakness; denies Fever and Chills Eyes: Redness (left eye contusion) ENT: denies Nose Congestion Respiratory: Shortness of Breath and SOB with Excertion; denies Cough and Hemoptysis Cardiovascular: Edema; denies Chest Pain, Palpitations and Light Headedness Gastrointestinal: denies Vomiting, Abdominal Pain, Diarrhea and Constipation Genitourinary: No Symptoms Reported Musculoskeletal: Arm Pain Skin: Bruising Neurological: Confusion; denies Change in Speech Physical Exam Vital Signs: Temperature 98.8 F Pulse Rate [Apical] 57 Pulse Rate 67 Respiratory Rate 18 Blood Pressure [Right Arm] 162/61 Blood Pressure [Left Arm] 186/56 Blood Pressure 146/67 O2 Sat by Pulse Oximetry 95 Oriented: Normal, Time, Person and Place Eyes: Other (left eye contusion) Nose: Normal Throat: Normal Respiratory: Diminished Throughout Cardiovascular: Normal Auscultation: Bowel Sounds: Normal Palpation: Normal Tenderness: Normal Skin: Ecchymosis and Other Musculoskeletal: Left (wrapped in dresing due to skin tear , fistula also in that arm ) Psychiatric: Normal Mood Description: Calm Affect: Normal Speech Pattern: Clear and Appropriate Assessment/Plan (1) Pneumonia: Qualifiers: Laterality: bilateral Lung location: unspecified part of lung Pneumonia type: due to unspecified organism Qualified Code(s): J18.9 - Pneumonia, unspecified organism Status: Acute Plan: CXR: right sided small effusion, hazy basilar opacity, infection vs edema, currently on 2 L O2 Received Rocephin x 1 in ED, will repeat CXR this am Switch to Cefepime and Azithromycin Blood cultures pending, sputum cultures ordered, O2 prn to keep sats>92% (2) Encephalopathy acute: Status: Acute Plan: likely post-dialysis or due to infection, patient missed dialysis on Thursday, excess fluid removed yesterday. CT-brain negative for any acute process. Transient confusion, patient awake and alert this AM, oriented to self, time and place. Check UA, continue to monitor. Patient's family will be bringing in medications, need to review home meds. (3) Pleural effusion: Status: Acute (4) Skin tear: Status: Acute Plan: recent fall, wound care and dressing changes prn (5) Facial contusion: Qualifiers: Encounter type: initial encounter Qualified Code(s): S00.83XA - Contus ion of other part of head, initial encounter Status: Acute Plan: recent fall, left eye contusion, all CT's negative for acute fracture (6) Hemodialysis patient: Status: Chronic (7) End-stage renal disease (ESRD): Status: Acute Plan: on HD , had a full treatment session yesterday. Followed by Dr. Tejada (8) Essential (primary) hypertension: Status: Acute Plan: review home meds, resume amlodipine. Prev records show Coreg, Lasix and hydralazine. Will review home meds and then resume
[2019-01-27] MEDS: ZITHROMAX INJ 500 MG VIAL 250 MG in D5W 250 ML IV 250 ML IV SCH ×2 (10:13→11:10)
--- NOTE | 2019-01-27 10:13 | RAD ---
History: CHF Study: Portable AP chest Comparison: Yesterday there is unchanged cardiomegaly status post CABG. There are small pleural effusions, more prominent on the right. There is vascular congestion. Impression: Findings most compatible with congestive heart failure, unchanged Reported By:
[2019-01-27] MEDS: PRAVACHOL PO SCH (10:14)
[2019-01-27] MEDS: NORVASC TAB 5 MG PO SCH ×2 (10:14→21:29)
[2019-01-27] MEDS: ZOLOFT PO SCH (10:14)
[2019-01-27] MEDS: PROTONIX TAB 40 MG PO SCH (10:14)
[2019-01-27] MEDS: MERREM VIAL 1 G in NS 100 ML IV + SPIKE MINIBAG* 100 ML IV SCH ×2 (10:36→21:47)
[2019-01-27] MEDS ORDERED: LASIX IVP SCH (11:00)
[2019-01-27] MEDS: APRESOLINE INJ 20 MG VIAL IVP ONE (11:10)
[2019-01-27] MEDS: ASPIRIN 81 MG CHEWTAB PO SCH (12:56)
[2019-01-27] MEDS: COREG TAB 12.5 MG PO SCH ×2 (12:56→21:29)
[2019-01-27] MEDS: HEPARIN SODIUM INJ 5000 UNITS SC SCH ×2 (12:57→21:31)
[2019-01-27] MEDS: APRESOLINE TAB 25 MG PO SCH ×2 (13:00→21:29)
[2019-01-27] MEDS: NS 1000 ML 1,000 ML IV SCH (13:03)
[2019-01-27] MEDS ORDERED: ATIVAN TAB 0.5 MG ONE (16:08)
[2019-01-27] MEDS: ATIVAN TAB 0.5 MG PO PRN (16:17)
[2019-01-27] MEDS ORDERED: NS 250 ML IV 0 ML IV ONE (20:59)
[2019-01-27] MEDS ORDERED: NS 100 ML IV + SPIKE MINIBAG* 100 ML IV ONE (21:41)
[2019-01-28] MEDS: NS 1000 ML 1,000 ML IV SCH ×2 (02:04→17:30)
[2019-01-28] MEDS: APRESOLINE TAB 25 MG PO SCH ×3 (05:52→21:00)
[2019-01-28 06:15] LABS: BASOPHILS % (AUTO) 0.7 % (0.2-1.0); EOSINOPHILS # (AUTO) 0.3 x10^3/uL (0.0-0.2); EOSINOPHILS % (AUTO) 5.5 % (0.9-2.9); HEMATOCRIT 28.2 % (36.0-47.0); HEMOGLOBIN 9.5 g/dL (12.0-16.0); LYMPHOCYTES # (AUTO) 0.9 X10^3/uL (1.3-2.9); LYMPHOCYTES % (AUTO) 17.6 % (21.0-51.0); MEAN CORPUSCULAR HEMOGLOBIN 30.8 pg (27.0-34.0); MEAN CORPUSCULAR HGB CONC 33.5 g/dL (33.0-35.0); MEAN CORPUSCULAR VOLUME 91.9 fL (80.0-100.0); MEAN PLATELET VOLUME 7.7 fL (7.4-11.0); MONOCYTES # (AUTO) 0.5 x10^3/uL (0.3-0.8); MONOCYTES % (AUTO) 11.1 % (0.0-13.0); NEUTROPHILS # (AUTO) 3.2 x10^3/uL (2.2-4.8); NEUTROPHILS % (AUTO) 65.1 % (42.0-75.0); PLATELET COUNT 166 X10^3/uL (150.0-450.0); RED BLOOD COUNT 3.07 X10^6/uL (3.5-5.4); RED CELL DISTRIBUTION WIDTH 16.6 % (11.6-16.5); WHITE BLOOD COUNT 4.9 X10^3/uL (3.6-10.0)
[2019-01-28 06:27] LABS: CALCIUM 8.4 mg/dL (8.5-10.1); CARBON DIOXIDE 24.7 mmol/L (21-32); CREATININE 6.9 mg/dL (0.55-1.02)
--- NOTE | 2019-01-28 08:40 | PCM.PROG ---
Progress Note Progress Note for Day of Date of Exam: 01/28/19 Subjective Subjective: Patient seen this AM, reports feeling better. Still has left arm pain and feels weak. She felt dizzy yesterday when standing up. Her BP has been elevated. Yesterday she had an episode of anxiety due to certain family members in the room. She has been eating and drinking well. Denies fever or chills, no N/V/D or abdominal pain. She will be going to dialysis this morning via EMS. CXR consistent with CHF. PT consult placed due to weakness, possible discharge tomorrow if doing well. Past Medical Family Social History Allergies: Allergies Sulfa (Sulfonamide Antibiotics) [SULFA] Allergy (Verified 01/26/19 18:52) sulfamethoxazole [From Bactrim] Allergy (Verified 01/26/19 18:52) trimethoprim [From Bactrim] Allergy (Verified 10/13/18 15:07) Review of Systems ROS: No change since H&P Vital Signs and I&O's Vital Signs: Temperature 98.1 F Pulse Rate [Right Brachial] 66 Pulse Rate [Apical] 66 Pulse Rate 67 Respiratory Rate 18 Blood Pressure [Right Arm] 181/77 Blood Pressure [Left Arm] 186/56 Blood Pressure 146/67 O2 Sat by Pulse Oximetry 95 Intake and Output: Intake & Output 01/25/19 01/26/19 01/27/19 01/28/19 23:59 23:59 23:59 23:59 Intake Total 860 / 860 190 / 190 Balance 860 / 860 190 / 190 Physical Exam Oriented: Normal, Time, Person and Place Eyes: Other (left eye contusion) Nose: Normal Throat: Normal Respiratory: Diminished Cardiovascular: Normal Auscultation: Bowel Sounds: Normal Tenderness: Normal Skin: Ecchymosis and Other Musculoskeletal: Left (wrapped in dresing due to skin tear , fistula also in that arm ) Psychiatric: Normal Mood Description: Calm Affect: Normal Speech Pattern: Clear and Appropriate Laboratory and Diagnostics Result Diagrams: 01/28/19 05:50 01/28/19 05:50 Labs: Laboratory WBC 4.9 X10^3/uL (3.6-10.0) 01/28/19 05:50 RBC 3.07 X10^6/uL (3.5-5.4) L 01/28/19 05:50 Hgb 9.5 g/dL (12.0-16.0) L 01/28/19 05:50 Hct 28.2 % (36.0-47.0) L 01/28/19 05:50 MCV 91.9 fL (80.0-100.0) 01/28/19 05:50 MCH 30.8 pg (27.0-34.0) 01/28/19 05:50 MCHC 33.5 g/dL (33.0-35.0) 01/28/19 05:50 RDW 16.6 % (11.6-16.5) H 01/28/19 05:50 Plt Count 166 X10^3/uL (150.0-450.0) 01/28/19 05:50 MPV 7.7 fL (7.4-11.0) 01/28/19 05:50 Neut % (Auto) 65.1 % (42.0-75.0) 01/28/19 05:50 Lymph % (Auto) 17.6 % (21.0-51.0) L 01/28/19 05:50 [place] % (Auto) 11.1 % (0.0-13.0) 01/28/19 05:50 Eos % (Auto) 5.5 % (0.9-2.9) H 01/28/19 05:50 Baso % (Auto) 0.7 % (0.2-1.0) 01/28/19 05:50 Neut # (Auto) 3.2 x10^3/uL (2.2-4.8) 01/28/19 05:50 Lymph # (Auto) 0.9 X10^3/uL (1.3-2.9) L 01/28/19 05:50 [place] # (Auto) 0.5 x10^3/uL (0.3-0.8) 01/28/19 05:50 Eos # (Auto) 0.3 x10^3/uL (0.0-0.2) H 01/28/19 05:50 Baso # (Auto) 0.0 X10^3/uL (0.0-0.1) 01/28/19 05:50 Absolute Nucleated RBC 0.0 /100WBC 01/28/19 05:50 Sodium 139 mmol/L (136-145) 01/28/19 05:50 Corrected Sodium 140 mmol/L (136-145) 01/28/19 05:50 Potassium 3.9 mmol/L (3.5-5.1) 01/28/19 05:50 Chloride 100 mmol/L (98-107) 01/28/19 05:50 Carbon Dioxide 24.7 mmol/L (21-32) 01/28/19 05:50 BUN 42 mg/dL (7-18) H 01/28/19 05:50 Creatinine 6.90 mg/dL (0.55-1.02) H 01/28/19 05:50 Est GFR (MDRD) Af Amer 8 (>60) L 01/28/19 05:50 Est GFR (MDRD) Non-Af 6 (>60) L 01/28/19 05:50 Glucose 122 mg/dL (65-99) H 01/28/19 05:50 POC Glucose (mg/dL) 119 mg/dL (65-99) H 01/28/19 05:40 Lactic Acid 1.3 mmol/L (0.4-2.0) 01/26/19 18:35 Calcium 8.4 mg/dL (8.5-10.1) L 01/28/19 05:50 Corrected Calcium 9.1 mg/dL (8.5-10.1) 01/27/19 06:05 Total Bilirubin 0.40 mg/dL (0.2-1.0) 01/27/19 06:05 AST 16 Units/L (15-37) 01/27/19 06:05 ALT 9 Units/L (12-78) L 01/27/19 06:05 Alkaline Phosphatase 66 Units/L (46-116) 01/27/19 06:05 Total Protein 5.4 g/dL (6.4-8.2) L 01/27/19 06:05 Albumin 2.8 g/dL (3.4-5.0) L 01/27/19 06:05 Globulin 2.6 g/dL (2.5-4.5) 01/27/19 06:05 Albumin/Globulin Ratio 1.1 Ratio (1.1-2.1) 01/27/19 06:05 Plan (1) Generalized weakness: Status: Acute Plan: PT consult today (2) Pulmonary edema: Status: Acute Qualifiers: Chronicity: acute Qualified Code(s): J81.0 - Acute pulmonary edema Plan: Received one dose of IV Lasix 40 mg yesterday, continue home Lasix 40 mg BID. Dialysis today, will follow-up (3) Pneumonia: Status: Acute Qualifiers: Laterality: bilateral Lung location: unspecified part of lung Pneumonia type: due to unspecified organism Qualified Code(s): J18.9 - Pneumonia, unspecified organism Plan: CXR: right sided small effusion, hazy basilar opacity, infection vs edema, currently on 2 L O2 Repeat CXR consistent with CHF, will DC abx, no white count or clinic Sx of pneumonia. (4) Encephalopathy acute: Status: Acute Plan: likely post-dialysis or due to infection, patient missed dialysis on Thursday, excess fluid removed yesterday. CT-brain negative for any acute process. - Resolved, patient alert and oriented this AM (5) Pleural effusion: Status: Acute (6) Skin tear: Status: Acute Plan: recent fall, wound care and dressing changes prn (7) Facial contusion: Status: Acute Qualifiers: Encounter type: initial encounter Qualified Code(s): S00.83XA - Contusion of other part of head, initial encounter Plan: recent fall, left eye contusion, all CT's negative for acute fracture (8) Hemodialysis patient: Status: Chronic (9) End-stage renal disease (ESRD): Status: Acute Plan: on HD , had a full treatment session yesterday. Followed by Dr. Tejada (10) Essential (primary) hypertension: Status: Acute Plan: elevated likely due to requiring dialysis and anxiety. Continue home meds: Norvasc, Coreg, Lasix and Hydralazine. Re-assess post dialysis.
[2019-01-28] MEDS: NORVASC TAB 5 MG PO SCH ×2 (09:48→20:41)
[2019-01-28] MEDS: HEPARIN SODIUM INJ 5000 UNITS SC SCH ×2 (09:48→20:42)
[2019-01-28] MEDS: PRAVACHOL PO SCH (09:49)
[2019-01-28] MEDS: COREG TAB 12.5 MG PO SCH ×2 (09:49→20:41)
[2019-01-28] MEDS: PROTONIX TAB 40 MG PO SCH (09:49)
[2019-01-28] MEDS: LASIX PO SCH ×2 (09:49→20:41)
[2019-01-28] MEDS: ELAVIL PO SCH (09:49)
[2019-01-28] MEDS: ZOLOFT PO SCH (09:49)
[2019-01-28] MEDS: ASPIRIN 81 MG CHEWTAB PO SCH (09:49)
[2019-01-28] MEDS: DUONEB 0.5 MG/3 MG NEB PRN (23:09)
[2019-01-28] MEDS: ATIVAN TAB 0.5 MG PO PRN (23:51)
[2019-01-28] MEDS: COLACE CAP 100 MG PO PRN (23:51)
[2019-01-29 04:59] LABS: BASOPHILS % (AUTO) 0.9 % (0.2-1.0); EOSINOPHILS # (AUTO) 0.3 x10^3/uL (0.0-0.2); HEMATOCRIT 29.2 % (36.0-47.0); HEMOGLOBIN 9.6 g/dL (12.0-16.0); LYMPHOCYTES % (AUTO) 20.7 % (21.0-51.0); MEAN CORPUSCULAR HEMOGLOBIN 30.6 pg (27.0-34.0); MEAN CORPUSCULAR VOLUME 92.7 fL (80.0-100.0); MEAN PLATELET VOLUME 7.9 fL (7.4-11.0); MONOCYTES # (AUTO) 0.6 x10^3/uL (0.3-0.8); MONOCYTES % (AUTO) 12.9 % (0.0-13.0); NEUTROPHILS # (AUTO) 2.8 x10^3/uL (2.2-4.8); NEUTROPHILS % (AUTO) 59.5 % (42.0-75.0); PLATELET COUNT 160 X10^3/uL (150.0-450.0); RED BLOOD COUNT 3.15 X10^6/uL (3.5-5.4); RED CELL DISTRIBUTION WIDTH 16.6 % (11.6-16.5); WHITE BLOOD COUNT 4.7 X10^3/uL (3.6-10.0)
[2019-01-29] MEDS: APRESOLINE TAB 25 MG PO SCH ×3 (05:00→21:00)
[2019-01-29 05:08] LABS: CALCIUM 8.6 mg/dL (8.5-10.1); CARBON DIOXIDE 30.1 mmol/L (21-32); CREATININE 3.66 mg/dL (0.55-1.02)
[2019-01-29] MEDS: NS 1000 ML 1,000 ML IV SCH ×2 (05:31→20:58)
[2019-01-29] MEDS ORDERED: KLOR-CON PO PRN (07:43)
[2019-01-29] MEDS ORDERED: POTASSIUM CHL 60 MEQ/NS 0.45% 500 ML IV PRN (07:43)
[2019-01-29] MEDS ORDERED: POTASSIUM CHLORIDE LIQ 20 MEQ UDC PO PRN (07:43)
[2019-01-29] MEDS ORDERED: POTASSIUM CHL 40 MEQ/NS 0.45% 500 ML IV PRN (07:43)
[2019-01-29] MEDS ORDERED: MAGNESIUM SULFATE 1 GRAM/100 mL PREMIX 1 GM/100 ML BAG IV PRN (07:43)
[2019-01-29] MEDS ORDERED: K-DUR TAB 20 MEQ PO PRN (07:43)
[2019-01-29] MEDS ORDERED: MICRO K EXTEN CAP 10 MEQ PO PRN (07:43)
[2019-01-29] MEDS ORDERED: K-RIDER 10 MEQ/NS 100 ML 10 MEQ/100 ML BAG IV PRN (07:43)
[2019-01-29] MEDS: HEPARIN SODIUM INJ 5000 UNITS SC SCH ×2 (10:00→20:59)
[2019-01-29] MEDS: ELAVIL PO SCH (10:01)
[2019-01-29] MEDS: ATIVAN TAB 0.5 MG PO PRN ×2 (10:01→20:57)
[2019-01-29] MEDS: ASPIRIN 81 MG CHEWTAB PO SCH (10:01)
[2019-01-29] MEDS: COREG TAB 12.5 MG PO SCH (10:01)
[2019-01-29] MEDS: LASIX PO SCH ×2 (10:01→20:58)
[2019-01-29] MEDS: PROTONIX TAB 40 MG PO SCH (10:02)
[2019-01-29] MEDS: NORVASC TAB 5 MG PO SCH (10:02)
[2019-01-29] MEDS: PRAVACHOL PO SCH (10:02)
[2019-01-29] MEDS: ZOLOFT PO SCH (10:02)
[2019-01-29] MEDS: COREG TAB 25 MG PO SCH ×3 (11:04→20:58)
[2019-01-29] MEDS: NORVASC TAB 10 MG PO SCH ×2 (11:25→20:57)
[2019-01-29] MEDS ORDERED: NORVASC TAB 5 MG PO NR (12:00)
[2019-01-29] MEDS ORDERED: COREG TAB 12.5 MG PO NR (12:00)
[2019-01-29] MEDS: COLACE CAP 100 MG PO PRN (20:58)
[2019-01-30] MEDS: DUONEB 0.5 MG/3 MG NEB PRN ×2 (04:50→09:20)
[2019-01-30] MEDS: APRESOLINE TAB 25 MG PO SCH ×3 (05:00→21:12)
[2019-01-30 05:22] LABS: BASOPHILS # (AUTO) 0.1 X10^3/uL (0.0-0.1); BASOPHILS % (AUTO) 0.9 % (0.2-1.0); EOSINOPHILS # (AUTO) 0.4 x10^3/uL (0.0-0.2); EOSINOPHILS % (AUTO) 6.2 % (0.9-2.9); HEMATOCRIT 31.2 % (36.0-47.0); HEMOGLOBIN 10.4 g/dL (12.0-16.0); LYMPHOCYTES # (AUTO) 1.2 X10^3/uL (1.3-2.9); LYMPHOCYTES % (AUTO) 20.2 % (21.0-51.0); MEAN CORPUSCULAR HEMOGLOBIN 30.6 pg (27.0-34.0); MEAN CORPUSCULAR HGB CONC 33.4 g/dL (33.0-35.0); MEAN CORPUSCULAR VOLUME 91.8 fL (80.0-100.0); MEAN PLATELET VOLUME 7.6 fL (7.4-11.0); MONOCYTES # (AUTO) 0.6 x10^3/uL (0.3-0.8); MONOCYTES % (AUTO) 10.1 % (0.0-13.0); NEUTROPHILS # (AUTO) 3.8 x10^3/uL (2.2-4.8); NEUTROPHILS % (AUTO) 62.6 % (42.0-75.0); PLATELET COUNT 187 X10^3/uL (150.0-450.0); RED BLOOD COUNT 3.39 X10^6/uL (3.5-5.4); RED CELL DISTRIBUTION WIDTH 16.6 % (11.6-16.5); WHITE BLOOD COUNT 6.1 X10^3/uL (3.6-10.0)
[2019-01-30 05:31] LABS: BLOOD UREA NITROGEN 32 mg/dL (7-18); CALCIUM 9.3 mg/dL (8.5-10.1); CARBON DIOXIDE 28.1 mmol/L (21-32); CHLORIDE 102 mmol/L (98-107); CREATININE 5.34 mg/dL (0.55-1.02); SODIUM 142 mmol/L (136-145); eGFR NON BLACK RACES 8 (>60)
[2019-01-30] MEDS: COREG TAB 25 MG PO SCH ×2 (10:19→20:16)
[2019-01-30] MEDS: ASPIRIN 81 MG CHEWTAB PO SCH (10:19)
[2019-01-30] MEDS: LASIX PO SCH ×2 (10:20→20:16)
[2019-01-30] MEDS: ELAVIL PO SCH (10:20)
[2019-01-30] MEDS: HEPARIN SODIUM INJ 5000 UNITS SC SCH ×2 (10:20→20:17)
[2019-01-30] MEDS: NORVASC TAB 10 MG PO SCH ×2 (10:21→20:16)
[2019-01-30] MEDS: PRAVACHOL PO SCH (10:21)
[2019-01-30] MEDS: ZOLOFT PO SCH (10:22)
[2019-01-30] MEDS: PROTONIX TAB 40 MG PO SCH (10:22)
[2019-01-30] MEDS ORDERED: MINOXIDIL PO ONE (11:38)
[2019-01-30] MEDS: MINOXIDIL PO SCH (11:40)
[2019-01-30] MEDS: NS 1000 ML 1,000 ML IV SCH (14:39)
[2019-01-30] MEDS: ATIVAN TAB 0.5 MG PO PRN ×2 (14:40→20:18)
[2019-01-30] MEDS ORDERED: CATAPRES-TTS-2 TD SCH (15:00)
[2019-01-30] MEDS: COLACE CAP 100 MG PO PRN (20:16)
[2019-01-30] MEDS ORDERED: CATAPRES TAB 0.2 MG PO PRN (21:28)
[2019-01-31 05:05] LABS: BASOPHILS # (AUTO) 0.1 X10^3/uL (0.0-0.1); BASOPHILS % (AUTO) 0.8 % (0.2-1.0); EOSINOPHILS # (AUTO) 0.4 x10^3/uL (0.0-0.2); HEMATOCRIT 28.9 % (36.0-47.0); HEMOGLOBIN 9.7 g/dL (12.0-16.0); LYMPHOCYTES % (AUTO) 16.1 % (21.0-51.0); MEAN CORPUSCULAR HEMOGLOBIN 30.7 pg (27.0-34.0); MEAN CORPUSCULAR HGB CONC 33.4 g/dL (33.0-35.0); MEAN PLATELET VOLUME 7.9 fL (7.4-11.0); MONOCYTES # (AUTO) 0.6 x10^3/uL (0.3-0.8); MONOCYTES % (AUTO) 9.2 % (0.0-13.0); NEUTROPHILS # (AUTO) 4.1 x10^3/uL (2.2-4.8); NEUTROPHILS % (AUTO) 66.9 % (42.0-75.0); PLATELET COUNT 186 X10^3/uL (150.0-450.0); RED BLOOD COUNT 3.14 X10^6/uL (3.5-5.4); WHITE BLOOD COUNT 6.1 X10^3/uL (3.6-10.0)
[2019-01-31 05:16] LABS: ALANINE AMINOTRANSFERASE 8 Units/L (12-78); ALBUMIN 2.7 g/dL (3.4-5.0); ALKALINE PHOSPHATASE 65 Units/L (46-116); ASPARTATE AMINO TRANSFERASE 11 Units/L (15-37); BLOOD UREA NITROGEN 44 mg/dL (7-18); CALCIUM 8.7 mg/dL (8.5-10.1); CARBON DIOXIDE 27.2 mmol/L (21-32); CHLORIDE 102 mmol/L (98-107); COR CA(FOR HYPOALB) 9.7 mg/dL (8.5-10.1); CREATININE 6.95 mg/dL (0.55-1.02); SODIUM 143 mmol/L (136-145); TOTAL PROTEIN 5.3 g/dL (6.4-8.2); eGFR NON BLACK RACES 6 (>60)
[2019-01-31] MEDS: APRESOLINE TAB 25 MG PO SCH (05:20)
[2019-01-31] MEDS: NS 1000 ML 1,000 ML IV SCH (05:34)
[2019-01-31] MEDS ORDERED: TYLENOL 325 MG TAB PO ONE ×2 (06:22→06:24)
--- NOTE | 2019-01-31 09:04 | W.DIS.FURT ---
Summary of Discharge Discharge Summary of Date Date of Exam: 01/31/19 Admission Date Date of Admission: 01/26/19 Admission Diagnosis Patient Problems (Updated 01/31/19 @ 08:56 by Teresa Mccauley) Fall (on) (from) other stairs and steps, sequela (Acute) W10.8XXS Hypertensive urgency (Acute) I16.0 Generalized weakness (Acute) R53.1 Encephalopathy acute (Acute) G93.40 Hospital Course: Ms. Mello is a 73y/o female with a PMH of ESRD on HD, Type 2 DM, HTN, CAD presenting with altered mental status and generalized weakness after dialysis. She goes to dialysis Thu-Thu-Thu, she missed dialysis Thursday and went on Thu and was admitted after due to confusion and weakness. Patient also had a fall a day prior and was seen in the ED with no acute fractures. In the ED, her BP was in the 200s. She received IV hydralazine. CXR was suugestive of edema vs infiltrate. She was started on IV abx initially, repeat CXR showed CHF therefore IV lasix was given and abx were stopped. Her BP continued to be elevated while she was on her home medications and also went to dialysis Thursday via ambulance. Patient's home anti-hypertensive medications were increased, clonidine patch and minoxidil were added. Her SBP ranged from 140-160. PT also evaluated the patient and did not have any skilled needs. Patient is stable for discharge to dialysis today and can go home from there. She needs to follow up with PCP within this week to further adjust her blood pressure medications. Vital Signs: Vital Signs (72 hours) 01/28/19 17:00 01/28/19 20:00 01/28/19 20:38 Temperature 98.0 F 98.1 F Pulse Rate 59 L Pulse Rate [Right Brachial] 61 71 Respiratory Rate 18 18 Blood Pressure [Right Arm] 203/53 194/121 O2 Sat by Pulse Oximetry 93 L 96 96 01/28/19 23:10 01/29/19 00:00 01/29/19 03:43 Temperature 99.0 F 98.0 F Pulse Rate 62 Pulse Rate [Right Brachial] 71 74 Respiratory Rate 16 20 Blood Pressure [Right Arm] 186/60 190/62 O2 Sat by Pulse Oximetry 96 97 93 L 01/29/19 08:00 01/29/19 09:18 01/29/19 12:00 Temperature 98.5 F 98.5 F Pulse Rate 80 Pulse Rate [Right Brachial] 82 73 Respiratory Rate 20 18 Blood Pressure [Right Arm] 198/88 O2 Sat by Pulse Oximetry 97 98 97 01/29/19 16:00 01/29/19 19:50 01/29/19 20:00 Temperature 98.3 F 97.9 F Pulse Rate 66 Pulse Rate [Right Brachial] 78 69 Respiratory Rate 20 20 Blood Pressure [Right Arm] 159/75 210/86 O2 Sat by Pulse Oximetry 96 97 96 01/30/19 00:00 01/30/19 01:31 01/30/19 04:00 Temperature 98.2 F 98.0 F Pulse Rate Pulse Rate [Right Brachial] 70 67 Respiratory Rate 20 20 Blood Pressure [Right Arm] 214/90 196/88 199/88 O2 Sat by Pulse Oximetry 98 97 01/30/19 04:50 01/30/19 08:00 01/30/19 09:20 Temperature 98.1 F Pulse Rate 75 88 Pulse Rate [Right Brachial] 72 Respiratory Rate 18 Blood Pressure [Right Arm] 208/81 O2 Sat by Pulse Oximetry 94 L 94 L 96 01/30/19 12:00 01/30/19 16:00 01/30/19 20:00 Temperature 98.2 F 98.4 F 98.3 F Pulse Rate Pulse Rate [Right Brachial] 66 63 72 Respiratory Rate 18 18 18 Blood Pressure [Right Arm] 161/84 190/60 O2 Sat by Pulse Oximetry 95 98 96 01/31/19 00:00 01/31/19 04:00 01/31/19 06:26 Temperature 98.3 F 98.3 F Pulse Rate Pulse Rate [Right Brachial] 72 75 Respiratory Rate 18 18 20 Blood Pressure [Right Arm] 168/54 140/58 O2 Sat by Pulse Oximetry 98 97 01/31/19 08:49 Temperature Pulse Rate 66 Pulse Rate [Right Brachial] Respiratory Rate Blood Pressure [Right Arm] O2 Sat by Pulse Oximetry 18 L Labs: Laboratory Last Values WBC 6.1 X10^3/uL (3.6-10.0) 01/31/19 04:11 RBC 3.14 X10^6/uL (3.5-5.4) L 01/31/19 04:11 Hgb 9.7 g/dL (12.0-16.0) L 01/31/19 04:11 Hct 28.9 % (36.0-47.0) L 01/31/19 04:11 MCV 92.0 fL (80.0-100.0) 01/31/19 04:11 MCH 30.7 pg (27.0-34.0) 01/31/19 04:11 MCHC 33.4 g/dL (33.0-35.0) 01/31/19 04:11 RDW 17.0 % (11.6-16.5) H 01/31/19 04:11 Plt Count 186 X10^3/uL (150.0-450.0) 01/31/19 04:11 MPV 7.9 fL (7.4-11.0) 01/31/19 04:11 Neut % (Auto) 66.9 % (42.0-75.0) 01/31/19 04:11 Lymph % (Auto) 16.1 % (21.0-51.0) L 01/31/19 04:11 [place] % (Auto) 9.2 % (0.0-13.0) 01/31/19 04:11 Eos % (Auto) 7.0 % (0.9-2.9) H 01/31/19 04:11 Baso % (Auto) 0.8 % (0.2-1.0) 01/31/19 04:11 Neut # (Auto) 4.1 x10^3/uL (2.2-4.8) 01/31/19 04:11 Lymph # (Auto) 1.0 X10^3/uL (1.3-2.9) L 01/31/19 04:11 [place] # (Auto) 0.6 x10^3/uL (0.3-0.8) 01/31/19 04:11 Eos # (Auto) 0.4 x10^3/uL (0.0-0.2) H 01/31/19 04:11 Baso # (Auto) 0.1 X10^3/uL (0.0-0.1) 01/31/19 04:11 Absolute Nucleated RBC 0.1 /100WBC 01/31/19 04:11 Sodium 143 mmol/L (136-145) 01/31/19 04:11 Corrected Sodium TNP 01/31/19 04:11 Potassium 3.9 mmol/L (3.5-5.1) 01/31/19 04:11 Chloride 102 mmol/L (98-107) 01/31/19 04:11 Carbon Dioxide 27.2 mmol/L (21-32) 01/31/19 04:11 BUN 44 mg/dL (7-18) H 01/31/19 04:11 Creatinine 6.95 mg/dL (0.55-1.02) H 01/31/19 04:11 Est GFR (MDRD) Af Amer 7 (>60) L 01/31/19 04:11 Est GFR (MDRD) Non-Af 6 (>60) L 01/31/19 04:11 Glucose 109 mg/dL (65-99) H 01/31/19 04:11 POC Glucose (mg/dL) 109 mg/dL (65-99) H 01/31/19 05:01 Lactic Acid 1.3 mmol/L (0.4-2.0) 01/26/19 18:35 Calcium 8.7 mg/dL (8.5-10.1) 01/31/19 04:11 Corrected Calcium 9.7 mg/dL (8.5-10.1) 01/31/19 04:11 Magnesium 1.9 mg/dL (1.7-2.9) 01/29/19 04:28 Total Bilirubin 0.40 mg/dL (0.2-1.0) 01/31/19 04:11 AST 11 Units/L (15-37) L 01/31/19 04:11 ALT 8 Units/L (12-78) L 01/31/19 04:11 Alkaline Phosphatase 65 Units/L (46-116) 01/31/19 04:11 Total Protein 5.3 g/dL (6.4-8.2) L 01/31/19 04:11 Albumin 2.7 g/dL (3.4-5.0) L 01/31/19 04:11 Globulin 2.6 g/dL (2.5-4.5) 01/31/19 04:11 Albumin/Globulin Ratio 1.0 Ratio (1.1-2.1) L 01/31/19 04:11 Reason For Visit: ENCEPHALOPATHY ACUTE PNEUMONIA Discharge Date Discharge Date: 01/31/19 Discharge Diagnosis All Active Problems (Updated 01/31/19 @ 08:56 by Teresa Mccauley) Fall (on) (from) other stairs and steps, sequela (Acute) Hypertensive urgency (Acute) Generalized weakness (Acute) Essential (primary) hypertension (Acute) Bilateral pleural effusion (Acute) Bronchitis (Acute) Fever in adult (Acute) Pulmonary edema (Acute) Pleural effusion (Acute) Abdominal pain (Acute) Altered mental state (Acute) End-stage renal disease (ESRD) (Acute) Gall bladder pain (Acute) Acute head trauma (Acute) Cervical sprain (Acute) Facial contusion (Acute) Skin tear (Acute) Encephalopathy acute (Acute) Pneumonia (Acute) Congestive heart failure (CHF) (Acute) Accelerated hypertension (Acute) Pulmonary infiltrate (Acute) Bilateral pleural effusion (Acute) Hyperglycemia (Acute) Kidney failure (Chronic) Hemodialysis patient (Chronic) 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 Pt is to keep follow up appointment as instructed and take medications as ordered. Discharge Medications Discharge Medications: Sulfa (Sulfonamide Antibiotics) [SULFA] Allergy (Verified 01/26/19 18:52) sulfamethoxazole [From Bactrim] Allergy (Verified 01/26/19 18:52) trimethoprim [From Bactrim] Allergy (Verified 10/13/18 15:07) CONTINUE taking the following medications aspirin 81 mg PO DAILY 01/27/19 [History] biotin 10,000 mcg PO DAILY 01/27/19 [History] fluconazole 150 mg PO WEEKLY 01/27/19 [History] New Prescriptions amlodipine 10 mg PO BID 30 Days #60 tab 01/31/19 [Rx] carvedilol 25 mg PO BID 30 Days #60 tab 01/31/19 [Rx] clonidine 1 ea TD Q7D 30 Days #4 ea 01/31/19 [Rx] minoxidil 10 mg PO DAILY 30 Days #30 tab 01/31/19 [Rx] Follow up and Referral Follow Up: 1 Week Discharge Disposition Discharge Disposition: Home
[2019-01-31] MEDS: HEPARIN SODIUM INJ 5000 UNITS SC SCH (09:55)
[2019-01-31] MEDS: PRAVACHOL PO SCH (09:56)
[2019-01-31] MEDS: PROTONIX TAB 40 MG PO SCH (09:56)
[2019-01-31] MEDS: NORVASC TAB 10 MG PO SCH (09:56)
[2019-01-31] MEDS: COREG TAB 25 MG PO SCH (09:56)
[2019-01-31] MEDS: ASPIRIN 81 MG CHEWTAB PO SCH (09:56)
[2019-01-31] MEDS: MINOXIDIL PO SCH (09:57)
[2019-01-31] MEDS: LASIX PO SCH (09:57)
[2019-01-31] MEDS: ZOLOFT PO SCH (09:57)
[2019-01-31] MEDS: ELAVIL PO SCH (09:57)
[2019-01-31 10:11] VITALS: BP 176/68
== END 2019-01-31 10:25 | disposition home health service (06) | DRG 193 ==
LOC: ER 18:02 → MED/SURG 18:02 → OBSVTOIN 01-27 00:31 → ER 01-27 01:28 → MED/SURG 01-27 01:28 → UNDODISIN 01-31 10:25
PROVIDERS: ADMIT Family Medicine; ATTEND Family Medicine
DX: G93.40 Encephalopathy, unspecified; J81.0 Acute pulmonary edema; S00.83XA Contusion of other part of head, initial encounter; R94.31 Abnormal electrocardiogram [ECG] [EKG]; I12.0 Hypertensive chronic kidney disease with stage 5 chronic kidney disease or end stage renal disease; I25.10 Atherosclerotic heart disease of native coronary artery without angina pectoris; R53.1 Weakness; X58.XXXA Exposure to other specified factors, initial encounter; J90 Pleural effusion, not elsewhere classified; N18.6 End stage renal disease; J18.8 Other pneumonia, unspecified organism; Z99.2 Dependence on renal dialysis
CPT/HCPCS: 36415; 70450; 71010; 71045; 80048; 80053; 83605; 83735; 85025; 87040; 90715; 93005; 94640; 94760; 96365; 96367; 96374; 97162; 99284; A4222; G0378; J0456; J0696; J1644; J1940; J2185; J3490; J7030; J7050; J7060; J7620; S0119; S0181